=== PATIENT | male | born 1985 | race Two or more races ===

== ENCOUNTER 2024-11-16 02:20 | Inpatient (IN) | payer OTHER, SELFPAY ==
--- NOTE | 2024-11-16 | XR_ITS ---
MRI abdomen, without contrast. MRCP Date and time of exam: November 16, 2024 1014 hours Comparison September 09, 2011 INDICATIONS: Abdominal pain today, enlarged common bile duct and gallbladder sonogram today Technique: Multiple axial and coronal images of the abdomen have been obtained with the Siemens 1.5T MRI scanner. Images obtained included T1 weighted transverse images, T2-weighted transverse images, T2-weighted transverse images fat-suppressed, T2 weighted haste fat suppressed transverse images, T1 weighted images, in and out of phase images, T2-weighted coronal images, breath hold, T2 weighted haze coronal images as well as T2 weighted coronal thick slab images, MRCP. Findings: Intrahepatic biliary tract dilatation Absent gallbladder Common bile duct 12 mm. No common bile duct stones. Abrupt termination of the distal common bile duct, coronal image 14 Pancreatic duct 3 mm No peripancreatic edema Spleen not enlarged No ascites No hydronephrosis IMPRESSION: Enlarged common bile duct 12 mm with fairly abrupt termination, no definite stones Consider ERCP follow-up
[2024-11-16 02:21] VITALS: BMI 26.6
[2024-11-16 02:40] VITALS: BP 129/73; PULSE 93; RESP 19; TEMP 36.6; O2SAT 96
--- NOTE | 2024-11-16 02:56 | XR_ITS ---
Examination: CT abdomen and pelvis without contrast. Coronal 3-D reconstructions. Sagittal 2-D reconstructions. Date and time of exam:[facility] 2024 0429 hours Comparison June 10, 2021 INDICATIONS: Mid quadrant abdominal pain onset today CTDI: vol (mGy): 7.50 DLP: (mGycm): 457 Technique: Axial images of the abdomen have been obtained, 3 mm slice thickness Intravenous contrast material has not been administered. Low dose protocols were performed. One or more of the following dose reduction techniques were used; automated exposure control, adjustment of the mA and/or KV according to patient size, use of iterative reconstruction technique. Findings: Diffuse fatty infiltration throughout the liver Absent gallbladder Common hepatic duct is enlarged, 13 mm as well as common bile duct with fairly abrupt termination of the distal common bile duct, coronal image 64 Splenomegaly AP dimension 13 cm No focal pancreatic mass or dilated pancreatic duct Normal adrenal glands Perinephric stranding Abdominal aorta normal size Normal appendix No bowel obstruction No diverticulitis Urinary bladder intact No prostatomegaly IMPRESSION: Abnormal enlargement, hepatic common bile duct with abrupt termination of the distal common bile duct, coronal image 64, consider MRCP follow-up to exclude common bile duct stones and/or stricture
--- NOTE | 2024-11-16 02:56 | PD.EDRME ---
Rapid Medical Screening Exam RME Arrival date/time: 11/16/24 02:20 This is a case of 39-year-old male who came into the emergency room due to generalized abdominal pain associated with nausea vomiting denies any constipation diarrhea or blood in stool Chief Complaint: Abdominal Pain Time Seen by Provider: 11/16/24 02:49
[2024-11-16 03:23] LABS: Basophils % (Auto) 0 % (0-2.5); Eosinophils # (Auto) 0.9 Thou/mm3 (0.0-0.5); Eosinophils % (Auto) 9 % (0-10); Hematocrit 44.3 % (41.0-53.0); Hemoglobin 15.3 g/dL (13.5-16.0); Immature Granulocytes % (Auto) 0 % (0-0); Immature Granulocytes Auto 0.03 Thou/mm3 (0.00-0.00); Lymphocytes # (Auto) 1.8 Thou/mm3 (1.0-4.8); Lymphocytes % (Auto) 18 % (10-50); Mean Corpuscular HGB Conc 34.5 g/dl (31.0-37.0); Mean Corpuscular Hemoglobin 30.7 pg (25.0-35.0); Mean Corpuscular Volume 89 fL (80-100); Monocytes # (Auto) 0.6 Thou/mm3 (0.0-0.8); Monocytes % (Auto) 7 % (0-12); Neutrophils # (Auto) 6.5 Thou/mm3 (1.8-7.7); Neutrophils % (Auto) 66 % (37-80); Nucleated Red Blood Cell % 0 /100 WBC (0); Platelet Count 168 Thou/mm3 (140-440); RDW Standard Deviation 42.5 fL (35.1-43.9); Red Blood Count 4.98 Miln/mm3 (4.50-5.90); White Blood Count 9.9 Thou/mm3 (3.8-10.6)
[2024-11-16 03:51] LABS: Alanine Aminotransferase 25 U/L (10-49); Albumin, Serum 4.5 gm/dL (3.5-5.0); Albumin/Globulin Ratio 1.8 (1.2-2.2); Alkaline Phosphatase 93 U/L (46-116); Anion Gap 7 (7-16); Aspartate Amino Transferase 58 U/L (0-34); BUN/Creatinine Ratio 21 Ratio (12-20); Bilirubin,Total 0.8 mg/dL (0.3-1.2); Blood Urea Nitrogen 21 mg/dL (9-23); Calcium 8.8 mg/dL (8.3-10.6); Calcium (Corrected) 8.8 mg/dL (8.5-10.1); Carbon Dioxide 23.9 mMol/L (20.0-31.0); Chloride 111 mMol/L (98-107); Estimated Creatinine Clearance 99.2 mL/min (>60); Globulin 2.5 gm/dL (2.3-3.5); Glucose 110 mg/dL (74-106); Lipase 52 U/L (12-53); Osmolality,Calculated 287 (275-295); Sodium 142 mMol/L (136-145); eGFR > 60 See Note
--- NOTE | 2024-11-16 05:07 | PRELIM_ITS ---
CT scan of the abdomen and pelvis without intravenous contrast (axial sections with sagittal and coronal reformats) November 16, 2024 at 0429 hours Clinical History: Abdominal pain. Comparison: No prior study is available for comparison. Findings: Clear lung bases. The liver, spleen, adrenal glands, pancreas unremarkable. Cholecystectomy common bile duct is dilated, 1.4 cm in diameter, likely secondary to cholecystectomy. No urinary tract stone or obstruction is identified. The kidneys are normal. The appendix is normal, best seen on image 145. The urinary bladder is normal. No free intraperitoneal air or fluid. Bowel caliber is normal. The abdominal wall is unremarkable. No acute osseous process. Impression: No acute process of the abdomen or pelvis on this noncontrast exam. No urinary tract stone or obstruction is identified. Report Electronically Signed By: Charlie Ivy 11/16/2024 5:06:58 AM [EST]
[2024-11-16 05:08] LABS: Collection Type, Urine Clean Catch
[2024-11-16 05:13] LABS: Bilirubin,Urine Negative (Negative); Blood,Urine Negative (Negative); Clarity,Urine Clear (Clear/Hazy); Color,Urine Yellow (Lt Yel-Yel); Glucose, Urine Negative (Negative); Ketones,Urine Negative (Negative); Leukocyte Esterase,Urine Negative (Negative); Nitrite,Urine Negative (Negative); Protein,Urine 1+ (Neg - Trace); RBC,Urine 3 /hpf (0-3); Specific Gravity,Urine 1.042 (1.001-1.035); Squamous Epithelial Cell,Urine 1 /hpf (0-5); WBC,Urine 4 /hpf (0-5)
[2024-11-16] MEDS: KETOROLAC INJ 60 MG/2 ML VIAL 30 MG IM (06:12)
--- NOTE | 2024-11-16 06:45 | XR_ITS ---
Examination: Abdomen sonogram, Limited Date and time of exam: November 16, 2024 0734 hours INDICATIONS: Onset abdominal pain today, cholecystectomy 2006, history biliary stent placement Technique: Real-time freedman scale transabdominal sonographic images of the upper abdomen obtained. Findings: Absent gallbladder Enlarged common bile duct 1.1 cm no definite stones Pancreatic head 3.0 cm Liver 12.9 cm no liver lesions, fatty infiltration is present Normal hepatopedal portal venous flow Patent IVC IMPRESSION: Abnormal enlargement common bile duct, consider MRCP follow-up to assess for stones or stricture in the common bile duct
[2024-11-16] MEDS: METOCLOPRAMIDE 5 MG TABLET 10 MG PO (07:02)
[2024-11-16] MEDS: oxyCODONE/APAP 5/325 TABLET 1 TAB PO (07:02)
[2024-11-16 07:18] VITALS: BP 119/80; PULSE 76; RESP 16; TEMP 36.4; O2SAT 98
--- NOTE | 2024-11-16 11:53 | PD.EDABDPN ---
ED Abdominal Pain RME/HPI General Chief Complaint: Abdominal Pain Stated complaint: ABD PAIN Time seen by provider: 11/16/24 02:49 Arrival date/time: 11/16/24 02:20 39-year-old male presents to the emergency department for complaint of abdominal pain nausea vomiting. Patient ports history of cholecystectomy reports complications after cholecystectomy and had CBD stone in the past. Limitations: no limitations RME / HPI RME / HPI narrative: 11/16/24 02:20 This is a case of 39-year-old male who came into the emergency room due to generalized abdominal pain associated with nausea vomiting denies any constipation diarrhea or blood in stool Related Data Allergies Allergy/AdvReac Type Severity Reaction Status Date / Time promethazine HCl Allergy Intermediate SEVERE Verified 12/17/19 19:46 ABDOMINAL PAIN morphine AdvReac Intermediate ABDOMINAL Verified 12/17/19 19:46 PAIN Review of Systems Review of Systems Systems Reviewed: All systems reviewed, normal except as documented Constitutional Constitutional: Reports system reviewed and no additional complaints, except as documented, Denies fever(s) and Denies headache(s) Eyes Eyes: Reports system reviewed and no additional complaints, except as documented and Denies blurry vision ENT Ears, Nose, Mouth, and Throat: Reports system reviewed and no additional complaints, except as documented, Denies headache(s), Denies nasal congestion and Denies nasal discharge Cardiovascular Cardiovascular: Reports system reviewed and no additional complaints, except as documented, Denies chest pain and Denies dyspnea Respiratory Respiratory: Reports system reviewed and no additional complaints, except as documented, Denies chest congestion, Denies cough and Denies dyspnea Gastrointestinal Gastrointestinal: Reports system reviewed and no additional complaints, except as documented, Reports abdominal pain, Reports nausea and Reports vomiting Integumentary/Breasts Skin/Breast: Reports system reviewed and no additional complaints, except as documented and Denies rash Neurologic Neurologic: Reports system reviewed and no additional complaints, except as documented, Reports as per HPI and Denies headache(s) Past Medical History Past Medical History CARDIAC: Negative Congestive Heart Failure RESPIRATORY: Negative Respiratory Disorders or Chronic Obstructive Pulmonary Disease (COPD) GENITOURINARY: Negative Renal Disease ENDOCRINE: Negative Diabetes Mellitus Type 1 or Diabetes Mellitus Type 2 Social History SMOKING STATUS: Never smoker ED Exam General Limitations: Present no limitations General appearance: Present alert and in no apparent distress Head Head exam: Present atraumatic, normocephalic and normal inspection Eye Eye exam: Present normal appearance, PERRL and EOMI; Absent conjunctival injection ENT ENT exam: Present normal exam, normal oropharynx and mucous membranes moist Neck Neck exam: Present normal inspection, full ROM and trachea midline Chest Chest inspection: Present normal inspection and symmetric chest wall rise Respiratory Respiratory exam: Present normal lung sounds bilaterally; Absent respiratory distress or wheezes Cardiovascular Cardiovascular exam: Present regular rate, normal rhythm and normal heart sounds Abdominal Exam Abdominal exam: Present soft, tenderness and normal bowel sounds; Absent distention, guarding, rebound or rigidity Extremities Exam Extremities exam: Present normal inspection and full ROM Back Exam Back exam: Present normal inspection and full ROM Neurological Exam Neurological exam: Present alert, oriented X3 and CN II-XII intact Psychiatric Psychiatric exam: Present normal affect and normal mood Skin Skin exam: Present warm, dry, intact and normal color Course Quality Measures none Orders Category Date Time Status Admit to Inpatient Status Routine Admission 11/16/24 12:21 Active Patient Condition Routine Admission 11/16/24 12:21 Ordered COVID-19 Screening Questionnaire NOW Care 11/16/24 11:54 Active Decision to Admit X1 Care 11/16/24 11:54 Active MRI Screening NOW Care 11/16/24 08:07 Active Notify provider NEEDED Care 11/16/24 12:21 Active Sequential Compression Device QSHIFT Care 11/16/24 12:20 Active Consult to Gastroenterology Stat Cons 11/16/24 11:[address] abdomen pelvis wo con Stat Exams 11/16/24 02:56 Completed MR MRCP Stat Exams 11/16/24 Completed US gall bladder Stat Exams 11/16/24 06:45 Completed CBC AM DRAW Lab 11/17/24 05:00 Ordered CBC AM DRAW Lab 11/18/24 05:00 Ordered CBC AM DRAW Lab 11/19/24 05:00 Ordered CBC Stat Lab 11/16/24 03:16 Completed Comprehensive Metabolic Panel AM DRAW Lab 11/17/24 05:00 Ordered Comprehensive Metabolic Panel AM DRAW Lab 11/18/24 05:00 Ordered Comprehensive Metabolic Panel AM DRAW Lab 11/19/24 05:00 Ordered Comprehensive Metabolic Panel Stat Lab 11/16/24 03:16 Completed Lipase Stat Lab 11/16/24 03:16 Completed Lipid Panel Routine Lab 11/16/24 12:24 Ordered Magnesium AM DRAW Lab 11/17/24 05:00 Ordered Magnesium AM DRAW Lab 11/18/24 05:00 Ordered Magnesium AM DRAW Lab 11/19/24 05:00 Ordered Partial Thromboplastin Time AM DRAW Lab 11/17/24 05:00 Ordered Phosphorous AM DRAW Lab 11/17/24 05:00 Ordered Phosphorous AM DRAW Lab 11/18/24 05:00 Ordered Phosphorous AM DRAW Lab 11/19/24 05:00 Ordered Prothrombin Time with INR AM DRAW Lab 11/17/24 05:00 Ordered Prothrombin Time with INR AM DRAW Lab 11/18/24 05:00 Ordered Prothrombin Time with INR AM DRAW Lab 11/19/24 05:00 Ordered Urinalysis Stat Lab 11/16/24 04:50 Completed Acetaminophen Tab [Tylenol Tab] Med 11/16/24 12:20 Active 650 mg PO Q6H PRN HYDROcodone*/APAP 5/325 [[place] 5/325] Med 11/16/24 12:20 Active 1 tab PO Q6HR PRN Ketorolac Inj [Toradol Inj] Med 11/16/24 05:52 Discontinued 30 mg IM X1 ONE Metoclopramide [Reglan] Med 11/16/24 06:45 Discontinued 10 mg PO X1 ONE Morphine Inj Med 11/16/24 12:20 Active 1 mg IVP Q4H PRN Ondansetron Inj [Zofran Inj] Med 11/16/24 12:20 Active 4 mg IV Q6H PRN Pantoprazole [Protonix] Med 11/17/24 09:00 Active 40 mg PO QDAY oxyCODONE/APAP 5/325 [Percocet 5/325] Med 11/16/24 06:45 Discontinued 1 tab PO X1 ONE Code Status Routine Oth 11/16/24 12:20 Ordered Vital Signs Vital signs: Vital Signs Temperature 97.9 F 11/16/24 02:40 Pulse Rate 93 11/16/24 02:40 Respiratory Rate 19 11/16/24 02:40 Blood Pressure 129/73 11/16/24 02:40 Pulse Oximetry (%) 96 11/16/24 02:40 Oxygen Delivery Method Room Air 11/16/24 02:40 O2 saturation 96% on room air within normal limits Abdominal Pain MDM MDM Narrative MDM Narrative:: 39-year-old male presents to the emergency department for complaint of abdominal pain nausea vomiting. Patient ports history of cholecystectomy reports complications after cholecystectomy and had CBD stone in the past. On exam patient has tenderness to the abdomen pain out of proportion Lab work and imaging reviewed lab work unremarkable Initially CT scan obtained followed by ultrasound. MRCP obtained MRCP shows abrupt termination and dilation Consultation: I spoke with Dr. Bedolla states he will do ERCP on Monday I spoke with hospitalist for admission patient admitted in no distress I do believe patient requires admission for IV fluids, pain medication, GI consultation and ERCP Patient data External records reviewed:: [facility] previous records Clinical information provided by:: patient Social determinants that could affect healthcare access:: none Patient has the following chronic illnesses:: See history How is presenting disease/condition affected by chronic disease/condition?: caused by Evaluation data The following diagnostics were reviewed and interpreted by me:: lab results and radiology exam(s) Lab and/or radiology exams considered but not ordered:: Labs radiology obtained Interpretation Summary: Reviewed by me Medications / Prescriptions Medications or Prescriptions considered but not ordered:: Given Medication administrations:: Medication Administration History Acetaminophen (Acetaminophen 325 Mg Tablet) 650 mg PO Q6H PRN; Protocol PRN Reason: PAIN OR FEVER > 100.4 Stop: 12/16/24 12:19 Hydrocodone Bitart/Acetaminophen (Hydrocodone/Apap 5/325 Tablet) 1 tab PO Q6HR PRN PRN Reason: PAIN SCALE 4-6 (Moderate Stop: 11/21/24 12:19 Morphine Sulfate (Morphine Sulf Inj 10 Mg/Ml Vial) 1 mg IVP Q4H PRN PRN Reason: PAIN SCALE 7-10 (Severe Stop: 11/21/24 12:19 Ondansetron HCl (Ondansetron Inj 2 Mg/Ml Inj 2 Ml) 4 mg IV Q6H PRN; Protocol PRN Reason: NAUSEA OR VOMITING Stop: 12/16/24 12:19 Pantoprazole Sodium (Pantoprazole 40 Mg Tablet) 40 mg PO QDAY CHARLES Stop: 12/17/24 08:59 Discontinued Medications Ketorolac Tromethamine (Ketorolac Inj 60 Mg/2 Ml Vial) 30 mg IM X1 ONE Stop: 11/16/24 05:53 Last Admin: 11/16/24 06:12 Dose: 30 mg Documented By: KLAUDIA Metoclopramide HCl (Metoclopramide 5 Mg Tablet) 10 mg PO X1 ONE Stop: 11/16/24 06:46 Last Admin: 11/16/24 07:02 Dose: 10 mg Documented By: TASHA Oxycodone/Acetaminophen (Oxycodone/Apap 5/325 Tablet) 1 tab PO X1 ONE Stop: 11/16/24 06:46 Last Admin: 11/16/24 07:02 Dose: 1 tab Documented By: TASHA Given Consultations Consultation(s) initiated? (list below): Yes Consultation #1 (Physician, Specialty, Details): Dr. Bedolla Diagnosis Differential diagnosis abdominal pain: abdominal pain, acute appendicitis, gastroenteritis and pancreatitis Most likely diagnosis given after review of the tests above:: Possible CBD stone, intractable abdominal pain Admission Indicated Admission indicated?: indicated Admission Request Was there a request for admission?: Yes Admission Attestation Admission request attestation: Discussed case with [] from Hospitalist service regarding admission. Discussed patients ED course, exam findings, labs, and radiology results. The Hospitalist [agrees,declines] to accept the patient for admission. Disposition Plan Disposition Plan: Admit Discharge Plan Plan Patient Disposition: Admit Acute Care w/in Hospital Discharge Disposition comment: Stable Prescriptions/Referrals Referrals: No Primary/Family,Physician [Primary Care Provider] - In 1 week Problem List Clinical Impression: Intractable abdominal pain, Common bile duct dilatation Patient/Caregiver Discharge Instructions Education Materials: [facility] Print Language: Azeri Stand Alone Forms: Barbie Award Info., Patient Portal Info Letter PA/DEVONTE Supervising Physician NATALYA/DEVONTE Supervising Physician: Dr schneider
[2024-11-16 12:52] LABS: Cardiac Risk Estimate 4.8 RATIO (4.0-6.7); Cholesterol 201 mg/dL (132-200); HDL Cholesterol 42 mg/dL (40-60); LDL Cholesterol,Calculated 134 mg/dL (0-130); Triglycerides 124 mg/dL (30-150)
--- NOTE | 2024-11-16 13:15 | ESHP_ITS ---
Documentation for date of: 11/16/24 HPI History of Present Illness History of present illness: Bridgett Viera is a 39-year-old male with no significant past medical history who presented to the ED on 11/16 for acute onset abdominal pain. He states that at around midnight he started to experience intense epigastric abdominal pain that radiated to his right upper quadrant and back with associated nausea and one episode of nonbloody emesis. Otherwise, he denies fever, chills, diarrhea, constipation, hematuria, or dysuria. Has a history of cholecystectomy in 2006 in [facility] complicated by choledocholithiasis in the same month as his cholecystectomy and had stents placed but have since been removed and no other complications since. In the ED, vital signs stable - no fever, blood pressure and heart rate within normal limits, and patient is on room air. No leukocytosis, total bilirubin withi normal limits, ALP within normal limits, and LFTs within normal limits. UA negative for signs of UTI. CT A/P showed absent gallbladder, CBD enlarged at 13 mm but with abrupt termination in distal CBD, splenomegaly, perinephric stranding. Gallbladder ultrasound showed absent gallbladder, CBD 1.1 cm without stones. MRCP showed enlarged CBD at 12 mm with abrupt termination, no definite stone seen. GI, Dr. Bedolla, consulted in ED and ERCP planned for Monday. 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 PSHx: work accident leading to 2 left shoulder surgeries, 3 right knee surgeries and 1 right ankle surgery Allergies: morphine (rash) Review of Systems Review of Systems Systems Reviewed: All systems reviewed, normal except as documented Exam Vital Signs Temp Pulse Resp BP Pulse Ox O2 Del Method 97.5 F 76 16 119/80 98 Room Air 11/16/24 07:18 11/16/24 07:18 11/16/24 07:18 11/16/24 07:18 11/16/24 07:18 11/16/24 07:18 Narrative Exam General: AOx3, moderate distress, able to speak full sentences HEENT: NC/AT, mucous membranes moist, bilateral sclera anicteric Cardiovascular: regular rate and rhythm, S1/S2 present, no murmurs appreciated Pulmonary: clear to auscultation bilaterally, no rales/rhonchi/wheezes Abdominal: epigastric and RUQ tenderness, soft, non-distended, no rebound/guarding Musculoskeletal: bilateral CVA tenderness, normal ROM, no peripheral edema Skin: warm and dry, intact, no rashes Neuro: CN II-XII intact, no focal deficits Results: Labs 11/16/24 03:16 11/16/24 03:16 Labs: Short CBC 11/16/24 Range/Units 03:16 WBC 9.9 (3.8-10.6) Thou/mm3 Hgb 15.3 (13.5-16.0) g/dL Hct 44.3 (41.0-53.0) % Plt Count 168 (140-440) Thou/mm3 BMP 11/16/24 03:16 Sodium 142 Potassium 4.0 Chloride 111 H Carbon Dioxide 23.9 BUN 21 Creatinine 1.0 Glucose 110 H Calcium 8.8 Liver Function 11/16/24 Range/Units 03:16 Total Bilirubin 0.8 (0.3-1.2) mg/dL AST 58 H (0-34) U/L ALT 25 (10-49) U/L Alkaline Phosphatase 93 (46-116) U/L Albumin 4.5 (3.5-5.0) gm/dL Urine 11/16/24 Range/Units 04:50 Urine Color Yellow (Lt Yel-Yel) Urine Clarity Clear (Clear/Hazy) Urine pH 6.0 (5.0-7.0) Ur Specific [place] 1.042 H (1.001-1.035) Urine Protein 1+ A (Neg - Trace) Urine Glucose (UA) Negative (Negative) Quality Measures Quality Measures none Medications Home Medications and Allergies Allergies Allergy/AdvReac Type Severity Reaction Status Date / Time promethazine HCl Allergy Intermediate SEVERE Verified 12/17/19 19:46 ABDOMINAL PAIN morphine AdvReac Intermediate ABDOMINAL Verified 12/17/19 19:46 PAIN Visit Medications Acetaminophen (Acetaminophen 325 Mg Tablet) 650 mg PO Q6H PRN; Protocol PRN Reason: PAIN OR FEVER > 100.4 Stop: 12/16/24 12:19 Hydrocodone Bitart/Acetaminophen (Hydrocodone/Apap 5/325 Tablet) 1 tab PO Q6HR PRN PRN Reason: PAIN SCALE 4-6 (Moderate Stop: 11/21/24 12:19 Diphenhydramine HCl (Diphenhydramine Elix 25 Mg/10 Ml Udc) 25 mg PO X1 PRN PRN Reason: rash, itching Stop: 12/16/24 12:41 Hydromorphone HCl (Hydromorphone Inj 2 Mg/Ml Vial) 0.5 mg IVP Q4HR PRN PRN Reason: PAIN SCALE 7-10 (Severe Stop: 11/21/24 12:59 Ondansetron HCl (Ondansetron Inj 2 Mg/Ml Inj 2 Ml) 4 mg IV Q6H PRN; Protocol PRN Reason: NAUSEA OR VOMITING Stop: 12/16/24 12:19 Pantoprazole Sodium (Pantoprazole 40 Mg Tablet) 40 mg PO QDAY CHARLES Stop: 12/17/24 08:59 Discontinued Medications Ketorolac Tromethamine (Ketorolac Inj 60 Mg/2 Ml Vial) 30 mg IM X1 ONE Stop: 11/16/24 05:53 Last Admin: 11/16/24 06:12 Dose: 30 mg Metoclopramide HCl (Metoclopramide 5 Mg Tablet) 10 mg PO X1 ONE Stop: 11/16/24 06:46 Last Admin: 11/16/24 07:02 Dose: 10 mg Morphine Sulfate (Morphine Sulf Inj 10 Mg/Ml Vial) 1 mg IVP Q4H PRN PRN Reason: PAIN SCALE 7-10 (Severe Stop: 11/21/24 12:19 Oxycodone/Acetaminophen (Oxycodone/Apap 5/325 Tablet) 1 tab PO X1 ONE Stop: 11/16/24 06:46 Last Admin: 11/16/24 07:02 Dose: 1 tab Assessment & Plan Plan Bridgett Viera is a 39-year-old male with no significant past medical history who presented to the ED on 11/16 for acute onset abdominal pain. He states that at around midnight he started to experience intense epigastric abdominal pain that radiated to his right upper quadrant and back with associated nausea and one episode of nonbloody emesis. Admitted for management of enlarged CBD as seen on MRCP and planned for ERCP. #Enlarged common bile duct #? Choledocolithiasis #Status-post cholecystectomy 2006 Around midnight, experienced intense epigastric abdominal pain that radiated to his right upper quadrant and back with associated nausea and one episode of nonbloody emesis. Denies fever, chills, diarrhea, constipation, hematuria, or dysuria. Cholecystectomy in 2006 in [facility] complicated by choledocholithiasis in the same month as his cholecystectomy and had stents placed but have since been removed and no other complications since. Imaging showed CBD dilatation (1.1-1.3 cm) with abrupt termination. Vitals stable without fevers, no leukocytosis, t bili and ALP wnl. ? GI consulted, appreciate recommendations ? ERCP planned for Monday, 11/18 ? Pain management: [facility] frazieraudid (allergy to morphine) ? Will continue to monitor labs and vitals for signs of deterioration Hospital management: Disposition: pending ERCP on 11/18 Fluids: not indicated Diet: regular Lines: PIV DVT prophylaxis: SCDs GI prophylaxis: pantoprazole 40 mg daily CODE STATUS: full code ----- Plan discussed with attending physician Dr. Alyson Leary MD PGY-1 Internal Medicine Attending Provider Attestation/Addendum I have discussed and was present for the essential components of the history, physical examination, diagnosis, and treatment plan with the resident. I agree with the patient's care as documented by the resident and amended herein by me. Abdi Shields DO. Although this document has been carefully reviewed, there may still be some phonetic and other typographical errors. These errors are purely grammatical due to imperfections in the software program and should not be construed in any way to compromise the substance of the patient's medical care during this visit.
[2024-11-16 14:02] VITALS: BP 110/71; PULSE 73; RESP 20; TEMP 36.7; O2SAT 95
[2024-11-16 15:10] VITALS: BP 121/77; PULSE 65; RESP 18; TEMP 37.2; O2SAT 99
[2024-11-16] MEDS: HYDROmorphone INJ 2 MG/ML VIAL 0.5 MG IVP ×2 (15:12→20:59)
--- NOTE | 2024-11-16 16:46 | PC.NURSE ---
report called to [facility] on med/surg floor. pt to go to room 368
[2024-11-16 17:37] VITALS: BP 119/77; PULSE 76; RESP 18; TEMP 36.6; O2SAT 98
[2024-11-16] MEDS: ONDANSETRON INJ 2 MG/ML INJ 2 ML 4 MG IV (18:33)
[2024-11-16] MEDS: KETOROLAC INJ 30 MG/ML VIAL IVP (18:33)
[2024-11-16 20:00] VITALS: BP 121/66; PULSE 74; RESP 18; TEMP 36.3; O2SAT 96
[2024-11-16] MEDS: RINGERS LACTATED 500 ML 500 ML 125 ML IV (23:47)
[2024-11-17] VITALS: BP 115/74; PULSE 74; RESP 18; TEMP 36.4; O2SAT 96
[2024-11-17] MEDS: HYDROmorphone INJ 2 MG/ML VIAL 0.5 MG IVP ×2 (02:22→07:57)
[2024-11-17 04:00] VITALS: BP 112/62; PULSE 85; RESP 18; TEMP 36; O2SAT 95
[2024-11-17] MEDS: ACETAMINOPHEN 325 MG TABLET 650 MG PO ×2 (04:14→12:10)
[2024-11-17] MEDS: ONDANSETRON INJ 2 MG/ML INJ 2 ML 4 MG IV ×2 (04:52→13:05)
[2024-11-17 06:19] LABS: Prothrombin Time 11.1 Seconds (9.0-12.2)
[2024-11-17] MEDS: KETOROLAC INJ 30 MG/ML VIAL IVP ×2 (06:26→18:06)
[2024-11-17 06:33] LABS: Alanine Aminotransferase 391 U/L (10-49); Albumin, Serum 3.8 gm/dL (3.5-5.0); Albumin/Globulin Ratio 1.7 (1.2-2.2); Alkaline Phosphatase 137 U/L (46-116); Anion Gap 9 (7-16); Aspartate Amino Transferase 354 U/L (0-34); BUN/Creatinine Ratio 15 Ratio (12-20); Bilirubin,Total 1.2 mg/dL (0.3-1.2); Blood Urea Nitrogen 15 mg/dL (9-23); Calcium 8.4 mg/dL (8.3-10.6); Calcium (Corrected) 8.6 mg/dL (8.5-10.1); Carbon Dioxide 21.3 mMol/L (20.0-31.0); Chloride 109 mMol/L (98-107); Estimated Creatinine Clearance 99.2 mL/min (>60); Globulin 2.3 gm/dL (2.3-3.5); Glucose 95 mg/dL (74-106); Osmolality,Calculated 278 (275-295); Phosphorous 3.4 mg/dL (2.4-5.1); Potassium 4.1 mMol/L (3.4-5.1); Sodium 139 mMol/L (136-145); Total Protein 6.1 gm/dL (5.7-8.2); eGFR > 60 See Note
[2024-11-17 07:47] LABS: Basophils % (Auto) 0 % (0-2.5); Eosinophils # (Auto) 0.5 Thou/mm3 (0.0-0.5); Eosinophils % (Auto) 8 % (0-10); Hematocrit 41.2 % (41.0-53.0); Hemoglobin 14.7 g/dL (13.5-16.0); Immature Granulocytes % (Auto) 0 % (0-0); Immature Granulocytes Auto 0.02 Thou/mm3 (0.00-0.00); Lymphocytes # (Auto) 0.8 Thou/mm3 (1.0-4.8); Lymphocytes % (Auto) 14 % (10-50); Mean Corpuscular HGB Conc 35.7 g/dl (31.0-37.0); Mean Corpuscular Hemoglobin 30.7 pg (25.0-35.0); Mean Corpuscular Volume 86 fL (80-100); Monocytes # (Auto) 0.4 Thou/mm3 (0.0-0.8); Monocytes % (Auto) 7 % (0-12); Neutrophils % (Auto) 70 % (37-80); Nucleated Red Blood Cell % 0 /100 WBC (0); Platelet Count 169 Thou/mm3 (140-440); RDW Standard Deviation 40.5 fL (35.1-43.9); Red Blood Count 4.79 Miln/mm3 (4.50-5.90); White Blood Count 5.8 Thou/mm3 (3.8-10.6)
[2024-11-17] MEDS: METOCLOPRAMIDE INJ 5 MG/ML VIAL 2 ML 10 MG IVP ×2 (07:57→18:07)
[2024-11-17] MEDS: RINGERS LACTATED 1000 ML 1,000 ML 100 ML IV ×2 (07:58→18:06)
[2024-11-17 08:00] VITALS: BP 108/65; PULSE 83; RESP 16; TEMP 36.2; O2SAT 97
[2024-11-17] MEDS: PANTOPRAZOLE 40 MG TABLET PO (08:07)
[2024-11-17 08:35] VITALS: BMI 27.0
--- NOTE | 2024-11-17 11:11 | PC.SS ---
Bridgett Viera is a 39-year-old male admitted to [facility] for ABD Pain. SS conducted bedside contact with the patient to complete initial assessment and to discuss discharge planning.? Patient confirmed demographic information. Patient identifies his life partner as his surrogate decision maker Padmini Zafar [phone]. Pt resides at home with family. Pt is independent with all ADLs, no need for any source for DME. Pt pharmacy of choice is [facility]. Pt will return home upon DC no further needs identified. SS will remain available for any additional needs. DM: Padmini Zafar [phone] DC plan: Home PCP: LILIYA Sotelo
--- NOTE | 2024-11-17 11:53 | ESPR_ITS ---
Documentation for date of: 11/17/24 Subjective Subjective Interval history: No acute overnight events. Seen and examined at bedside and continues to endorse abdominal pain and nausea that worsens when he attempts to eat. He did have one episode of nonbloody emesis and zofran was switched to reglan. Dilaudid was increased to 0.5 to 1 mg IV q4h. Vital signs stable, no fevers overnight, no leukocytosis, but AST increased from 58 to 354, ALT increased from 25 to 391, ALP increased from 93 to 137, and total bilirubin increased from 0.8 to 1.2. Pending ERCP tomorrow and NPO after midnight. Exam Vital Signs Temp Pulse Resp BP Pulse Ox O2 Del Method 97.1 F 83 16 108/65 97 Room Air 11/17/24 08:00 11/17/24 08:00 11/17/24 08:00 11/17/24 08:00 11/17/24 08:00 11/17/24 08:00 Narrative Exam General: AOx3, moderate distress, able to speak full sentences HEENT: NC/AT, mucous membranes moist, bilateral sclera anicteric Cardiovascular: regular rate and rhythm, S1/S2 present, no murmurs appreciated Pulmonary: clear to auscultation bilaterally, no rales/rhonchi/wheezes Abdominal: epigastric and RUQ tenderness that radiates to back, soft, non- distended, no rebound/guarding Musculoskeletal: normal ROM, no peripheral edema Skin: warm and dry, intact, no rashes Neuro: CN II-XII intact, no focal deficits Objective Labs 11/17/24 06:40 11/17/24 04:41 Labs: Laboratory Results - last 24 hr 11/16/24 11/17/24 11/17/24 03:16 04:41 06:40 WBC 5.8 D RBC 4.79 Hgb 14.7 Hct 41.2 MCV 86 MCH 30.7 MCHC 35.7 RDW Std Deviation 40.5 Plt Count 169 Neut % (Auto) 70 Lymph % (Auto) 14 [place] % (Auto) 7 Eos % (Auto) 8 Baso % (Auto) 0 Neut # (Auto) 4.0 Lymph # (Auto) 0.8 L [place] # (Auto) 0.4 Eos # (Auto) 0.5 Baso # (Auto) 0.0 Immature Gran # (Auto) 0.02 H Absolute Nucleated RBC 0.00 Immature Gran % 0 Nucleated RBC % 0 PT 11.1 INR 1.0 APTT 28.0 Sodium 139 Potassium 4.1 Chloride 109 H Carbon Dioxide 21.3 Anion Gap 9 BUN 15 Creatinine 1.0 Estim Creat Clear Calc 99.2 eGFR > 60 BUN/Creatinine Ratio 15 Glucose 95 Calculated Osmolality 278 Calcium 8.4 Corrected Calcium 8.6 Phosphorus 3.4 Magnesium 2.0 Total Bilirubin 1.2 AST 354 H ALT 391 H Alkaline Phosphatase 137 H D Total Protein 6.1 Albumin 3.8 D Globulin 2.3 Albumin/Globulin Ratio 1.7 Triglycerides 124 Cholesterol 201 H LDL Cholesterol, Calc 134 H HDL Cholesterol 42 Cholesterol/HDL Ratio 4.8 Quality Measures Quality Measures none Assessment & Plan Assessment Current Active Medications: Generic Name Dose Route Start Last Admin Trade Name Freq PRN Reason Stop Dose Admin Acetaminophen 650 mg 11/16/24 12:20 11/17/24 04:14 Acetaminophen 325 Mg Tablet PO 12/16/24 12:19 650 mg Q6H PRN Administration PAIN OR FEVER > 100.4 Protocol Diphenhydramine HCl 25 mg 11/16/24 12:42 Diphenhydramine Elix 25 Mg/10 Ml Udc PO 12/16/24 12:41 X1 PRN rash, itching Hydromorphone HCl 1 mg 11/17/24 11:33 Hydromorphone Inj 2 Mg/Ml Vial IVP 11/21/24 12:59 Q4HR PRN PAIN SCALE 7-10 (Severe Lactated Ringer's 1,000 mls @ 100 mls/hr 11/17/24 07:52 11/17/24 07:58 Lactated Ringers IV 12/17/24 07:51 100 mls/hr .Q10H CHARLES Administration Ketorolac Tromethamine 30 mg 11/16/24 16:24 11/17/24 06:26 Ketorolac Inj 30 Mg/Ml Vial IVP 11/21/24 16:23 30 mg Q6HR PRN Administration PAIN SCALE 4-6 (Moderate Ondansetron HCl 4 mg 11/16/24 12:20 11/17/24 04:52 Ondansetron Inj 2 Mg/Ml Inj 2 Ml IV 12/16/24 12:19 4 mg Q6H PRN Administration NAUSEA OR VOMITING Protocol Pantoprazole Sodium 40 mg 05/11/25 09:00 11/17/24 08:07 Pantoprazole 40 Mg Tablet PO 12/17/24 08:59 40 mg QDAY CHARLES Administration Plan Bridgett Viera is a 39-year-old male with no significant past medical history who presented to the ED on 11/16 for acute onset abdominal pain. He states that at around midnight he started to experience intense epigastric abdominal pain that radiated to his right upper quadrant and back with associated nausea and one episode of nonbloody emesis. Admitted for management of enlarged CBD as seen on MRCP and planned for ERCP. #Enlarged common bile duct #? Choledocolithiasis #Status-post cholecystectomy 2006 Around midnight, experienced intense epigastric abdominal pain that radiated to his right upper quadrant and back with associated nausea and one episode of nonbloody emesis. Denies fever, chills, diarrhea, constipation, hematuria, or dysuria. Cholecystectomy in 2006 in [facility] complicated by choledocholithiasis in the same month as his cholecystectomy and had stents placed but have since been removed and no other complications since. Imaging showed CBD dilatation (1.1-1.3 cm) with abrupt termination. Vitals stable without fevers, no leukocytosis, t bili and ALP wnl on admission but LFTs, ALP, and t bili all noted to increase overnight. ? GI consulted, appreciate recommendations ? ERCP planned for Monday, 11/18 ? Pain management: Ketorolac, Dilaudid (allergy to morphine) ? Zofran switched to reglan ? Will continue to monitor labs and vitals for signs of deterioration Hospital management: Disposition: pending ERCP on 11/18 Fluids: not indicated Diet: regular and low fat diet with small meal modification, NPO after midnight Lines: PIV DVT prophylaxis: SCDs GI prophylaxis: pantoprazole 40 mg daily CODE STATUS: full code ----- Plan discussed with attending physician Dr. Alyson Leary MD PGY-1 Internal Medicine Attending Provider Attestation/Addendum I have discussed and was present for the essential components of the history, physical examination, diagnosis, and treatment plan with the resident. I agree with the patient's care as documented by the resident and amended herein by me. Abdi Shields DO. Patient seen and evaluated this AM. Pain is not very controlled, patient can really not tolerate food at this time. Liver enzymes continue to elevate, ERCP scheduled for tomorrow hopefully this resolves his issue. Although this document has been carefully reviewed, there may still be some phonetic and other typographical errors. These errors are purely grammatical due to imperfections in the software program and should not be construed in any way to compromise the substance of the patient's medical care during this visit.
[2024-11-17 12:00] VITALS: BP 117/67; PULSE 70; RESP 18; TEMP 36.2; O2SAT 96
[2024-11-17] MEDS: HYDROmorphone INJ 2 MG/ML VIAL 1 MG IVP ×2 (13:06→20:24)
--- NOTE | 2024-11-17 15:16 | EKG_ITS ---
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
--- NOTE | 2024-11-17 15:46 | PC.SS ---
Rounding: Pending ERCP
[2024-11-17 16:00] VITALS: BP 114/73; PULSE 68; RESP 19; TEMP 36.6; O2SAT 97
[2024-11-17 20:00] VITALS: BP 105/75; PULSE 8; RESP 18; TEMP 36.3; O2SAT 97
[2024-11-18] VITALS: BP 116/73; PULSE 74; RESP 18; TEMP 36.3; O2SAT 98
[2024-11-18] MEDS: KETOROLAC INJ 30 MG/ML VIAL IVP ×4 (00:07→22:00)
[2024-11-18 04:00] VITALS: BP 115/98; PULSE 82; RESP 18; TEMP 36.7; O2SAT 99
[2024-11-18] MEDS: HYDROmorphone INJ 2 MG/ML VIAL 1 MG IVP ×3 (04:21→18:07)
[2024-11-18] MEDS: RINGERS LACTATED 1000 ML 1,000 ML 100 ML IV ×2 (04:23→14:58)
[2024-11-18 06:00] VITALS: BMI 27.0
[2024-11-18] MEDS: METOCLOPRAMIDE INJ 5 MG/ML VIAL 2 ML 10 MG IVP ×3 (06:34→18:28)
[2024-11-18 06:46] LABS: Basophils % (Auto) 0 % (0-2.5); Eosinophils # (Auto) 0.6 Thou/mm3 (0.0-0.5); Eosinophils % (Auto) 9 % (0-10); Hematocrit 41.2 % (41.0-53.0); Hemoglobin 14.1 g/dL (13.5-16.0); Immature Granulocytes % (Auto) 0 % (0-0); Immature Granulocytes Auto 0.01 Thou/mm3 (0.00-0.00); Lymphocytes # (Auto) 1.4 Thou/mm3 (1.0-4.8); Lymphocytes % (Auto) 22 % (10-50); Mean Corpuscular HGB Conc 34.2 g/dl (31.0-37.0); Mean Corpuscular Hemoglobin 30.5 pg (25.0-35.0); Mean Corpuscular Volume 89 fL (80-100); Monocytes # (Auto) 0.4 Thou/mm3 (0.0-0.8); Monocytes % (Auto) 7 % (0-12); Neutrophils # (Auto) 3.9 Thou/mm3 (1.8-7.7); Neutrophils % (Auto) 62 % (37-80); Nucleated Red Blood Cell % 0 /100 WBC (0); Platelet Count 162 Thou/mm3 (140-440); Prothrombin Time 11.3 Seconds (9.0-12.2); RDW Standard Deviation 41.3 fL (35.1-43.9); Red Blood Count 4.62 Miln/mm3 (4.50-5.90); White Blood Count 6.4 Thou/mm3 (3.8-10.6)
[2024-11-18 07:01] LABS: Alanine Aminotransferase 263 U/L (10-49); Albumin, Serum 3.6 gm/dL (3.5-5.0); Albumin/Globulin Ratio 1.7 (1.2-2.2); Alkaline Phosphatase 129 U/L (46-116); Anion Gap 7 (7-16); Aspartate Amino Transferase 96 U/L (0-34); BUN/Creatinine Ratio 17 Ratio (12-20); Bilirubin,Total 0.6 mg/dL (0.3-1.2); Blood Urea Nitrogen 15 mg/dL (9-23); Calcium 8.1 mg/dL (8.3-10.6); Calcium (Corrected) 8.4 mg/dL (8.5-10.1); Carbon Dioxide 26.7 mMol/L (20.0-31.0); Chloride 108 mMol/L (98-107); Creatinine (Component) 0.9 mg/dL (0.6-1.3); Estimated Creatinine Clearance 110.2 mL/min (>60); Globulin 2.1 gm/dL (2.3-3.5); Glucose 99 mg/dL (74-106); Magnesium 1.9 mg/dL (1.6-2.6); Osmolality,Calculated 283 (275-295); Phosphorous 2.6 mg/dL (2.4-5.1); Potassium 3.7 mMol/L (3.4-5.1); Sodium 142 mMol/L (136-145); Total Protein 5.7 gm/dL (5.7-8.2); eGFR > 60 See Note
[2024-11-18 07:44] VITALS: BP 107/68; PULSE 82; RESP 20; TEMP 36.4; O2SAT 98
--- NOTE | 2024-11-18 10:46 | PC.SS ---
SS follow up note; pending ERCP today, Possible discharge today.
[2024-11-18 12:00] VITALS: BP 122/76; PULSE 71; RESP 18; TEMP 36.2; O2SAT 96
[2024-11-18] MEDS: ACETAMINOPHEN 325 MG TABLET 650 MG PO (12:43)
[2024-11-18 16:00] VITALS: BP 113/72; PULSE 83; RESP 16; TEMP 36.8; O2SAT 95
[2024-11-18 20:00] VITALS: BP 125/77; PULSE 97; RESP 19; TEMP 36.7; O2SAT 97
--- NOTE | 2024-11-18 23:20 | PD.HHPROG ---
Documentation for date of: 11/18/24 Subjective - Hospitalist Subjective Interval history: No acute events overnight, patient still has abdominal pain, more in the right upper quadrant and epigastric region, patient also very nauseous and was experiencing vomiting this morning. Labs largely unremarkable, liver enzymes remain elevated, T. bili 0.6, AST 96, ALT 263 and alk phos 129. Exam Vital Signs Temp Pulse Resp BP Pulse Ox O2 Del Method 98.0 F 97 19 125/77 97 Room Air 11/18/24 20:00 11/18/24 20:00 11/18/24 20:00 11/18/24 20:00 11/18/24 20:00 11/18/24 20:00 Narrative GENERAL APPEARANCE: NAD, mild distress HEENT: Normocephalic, atraumatic, NECK: Supple CARDIOVASULAR: NSR, S1, S2 heard without S3-S4 or murmur no rubs or gallops. LUNGS/CHEST: CTA bilaterally ABDOMEN: Tender to the right upper quadrant and epigastric region, NABS x 4 quadrants. EXTREMITIES: Normal inspection and palpation. No edema, clubbing or cyanosis. NEURO: Alert, awake and oriented x3. Objective - Hospitalist Labs Diagram: 11/18/24 05:11/18/24 05:00 Labs: Laboratory Results - last 24 hr 11/18/24 05:00 WBC 6.4 RBC 4.62 Hgb 14.1 Hct 41.2 MCV 89 MCH 30.5 MCHC 34.2 RDW Std Deviation 41.3 Plt Count 162 Neut % (Auto) 62 Lymph % (Auto) 22 [place] % (Auto) 7 Eos % (Auto) 9 Baso % (Auto) 0 Neut # (Auto) 3.9 Lymph # (Auto) 1.4 [place] # (Auto) 0.4 Eos # (Auto) 0.6 H Baso # (Auto) 0.0 Immature Gran # (Auto) 0.01 H Absolute Nucleated RBC 0.00 Immature Gran % 0 Nucleated RBC % 0 PT 11.3 INR 1.0 Sodium 142 Potassium 3.7 Chloride 108 H Carbon Dioxide 26.7 Anion Gap 7 BUN 15 Creatinine 0.9 Estim Creat Clear Calc 110.2 eGFR > 60 BUN/Creatinine Ratio 17 Glucose 99 Calculated Osmolality 283 Calcium 8.1 L Corrected Calcium 8.4 L Phosphorus 2.6 Magnesium 1.9 Total Bilirubin 0.6 D AST 96 H ALT 263 H Alkaline Phosphatase 129 H Total Protein 5.7 Albumin 3.6 Globulin 2.1 L Albumin/Globulin Ratio 1.7 Assessment & Plan Plan: Bridgett Viera is a 39-year-old male with no significant past medical history who presented to the ED on 11/16 for acute onset abdominal pain. He states that at around midnight he started to experience intense epigastric abdominal pain that radiated to his right upper quadrant and back with associated nausea and one episode of nonbloody emesis. Admitted for management of enlarged CBD as seen on MRCP and planned for ERCP. #Choledocolithiasis #Hx of cholecystectomy 2007 Around midnight, experienced intense epigastric abdominal pain that radiated to his right upper quadrant and back with associated nausea and one episode of nonbloody emesis. Denies fever, chills, diarrhea, constipation, hematuria, or dysuria. Cholecystectomy in 2006 in [facility] complicated by choledocholithiasis in the same month as his cholecystectomy and had stents placed but have since been removed and no other complications since. Imaging showed CBD dilatation (1.1-1.3 cm) with abrupt termination. Vitals stable without fevers, no leukocytosis, t bili and ALP wnl on admission but LFTs, ALP, and t bili all noted to increase overnight. ? GI consulted, appreciate recommendations ? ERCP planned for Sunday 11/19, n.p.o. after midnight ? Pain management: Ketorolac, Dilaudid (allergy to morphine) ? Zofran switched to [facility] Hospital management: Disposition: Pending clinical course and specialist recommendations Fluids: not indicated Diet: N.p.o. after midnight Lines: PIV DVT prophylaxis: SCDs GI prophylaxis: pantoprazole 40 mg daily CODE STATUS: full code Time Spent with Patient Time: Total time spent is greater than 50% in coordination of care (as documented) at patient's floor/unit and/or counseling patient: Time with patient: 25 - 35 minutes Reason for Continued Stay Reason for continued stay: other (ERCP) Quality Measures Quality Measures none
[2024-11-19] VITALS (16 sets, daily range): BP systolic 92–134; BP diastolic 59–89; PULSE 69–118; RESP 12–96; TEMP 36.1–36.8; O2SAT 93–100; BMI 27.3; BMI 27.4
[2024-11-19] MEDS: RINGERS LACTATED 1000 ML 1,000 ML 100 ML IV ×2 (00:25→09:50)
[2024-11-19] MEDS: HYDROmorphone INJ 2 MG/ML VIAL 1 MG IVP ×3 (00:39→21:03)
[2024-11-19] MEDS: METOCLOPRAMIDE INJ 5 MG/ML VIAL 2 ML 10 MG IVP ×3 (05:54→21:45)
[2024-11-19] MEDS: KETOROLAC INJ 30 MG/ML VIAL IVP ×3 (05:56→23:38)
[2024-11-19 05:59] LABS: Basophils % (Auto) 0 % (0-2.5); Eosinophils # (Auto) 0.5 Thou/mm3 (0.0-0.5); Eosinophils % (Auto) 8 % (0-10); Hematocrit 39.1 % (41.0-53.0); Hemoglobin 13.8 g/dL (13.5-16.0); Immature Granulocytes % (Auto) 0 % (0-0); Immature Granulocytes Auto 0.01 Thou/mm3 (0.00-0.00); Lymphocytes # (Auto) 1.8 Thou/mm3 (1.0-4.8); Lymphocytes % (Auto) 26 % (10-50); Mean Corpuscular HGB Conc 35.3 g/dl (31.0-37.0); Mean Corpuscular Hemoglobin 30.8 pg (25.0-35.0); Mean Corpuscular Volume 87 fL (80-100); Monocytes # (Auto) 0.5 Thou/mm3 (0.0-0.8); Monocytes % (Auto) 7 % (0-12); Neutrophils # (Auto) 4.1 Thou/mm3 (1.8-7.7); Neutrophils % (Auto) 59 % (37-80); Nucleated Red Blood Cell % 0 /100 WBC (0); Platelet Count 157 Thou/mm3 (140-440); Red Blood Count 4.48 Miln/mm3 (4.50-5.90); White Blood Count 6.9 Thou/mm3 (3.8-10.6)
[2024-11-19 06:11] LABS: Prothrombin Time 10.8 Seconds (9.0-12.2)
[2024-11-19 06:30] LABS: Alanine Aminotransferase 168 U/L (10-49); Albumin, Serum 3.7 gm/dL (3.5-5.0); Albumin/Globulin Ratio 1.9 (1.2-2.2); Alkaline Phosphatase 119 U/L (46-116); Anion Gap 7 (7-16); Aspartate Amino Transferase 35 U/L (0-34); BUN/Creatinine Ratio 13 Ratio (12-20); Bilirubin,Total 0.4 mg/dL (0.3-1.2); Blood Urea Nitrogen 13 mg/dL (9-23); Calcium 8.4 mg/dL (8.3-10.6); Calcium (Corrected) 8.6 mg/dL (8.5-10.1); Carbon Dioxide 29.8 mMol/L (20.0-31.0); Chloride 105 mMol/L (98-107); Estimated Creatinine Clearance 99.2 mL/min (>60); Glucose 109 mg/dL (74-106); Magnesium 1.8 mg/dL (1.6-2.6); Osmolality,Calculated 284 (275-295); Potassium 3.8 mMol/L (3.4-5.1); Sodium 142 mMol/L (136-145); Total Protein 5.7 gm/dL (5.7-8.2); eGFR > 60 See Note
--- NOTE | 2024-11-19 10:02 | XR_ITS ---
Examination: ERCP 27 spot fluoroscopic films of the abdomen Fluoroscopy Exam date and time: November 19, 2024 1344 hours INDICATIONS: Abdominal pain, enlarged common bile duct 12 mm with abrupt termination of the distal common bile duct on MRCP this morning TECHNIQUE AND FINDINGS: 27 spot fluoroscopic abdomen films Opacification enlarged common hepatic common bile duct Balloon sweeping of the duct Biliary stent in satisfactory position Fluoroscopy 60 seconds radiation dose 6.84 milligray 27 spot fluoroscopic films IMPRESSION: ERCP as above
[2024-11-19] MEDS: PIPER/TAZO 3.375 GM PREMIX 3.375 GM/50 ML BAG IV (12:24)
[2024-11-19] MEDS: INDOMETHACIN 50 MG SUPP 100 MG PR (13:03)
--- NOTE | 2024-11-19 13:42 | SUR.PHASEI ---
1342: Pt. AAOx4, vitals stable, breathing unlabored, no complaint of pain or nausea, no dressing in place, no active bleed noted, report received from Leelee LI and MD Guzman.
--- NOTE | 2024-11-19 13:45 | PD.IMCONS ---
HPI Data of Consult Requesting Physician: Frantz Shields DO Primary Care Provider: Physician No Primary/Family Consult Narrative History of present illness: 39 year old male with abnormal MRCP, had cholecytstomy in 2006 with abdominal pain in RUQ radiating to back. cc:: cc: Frantz Shields DO Review of Systems Review of Systems Narrative Review of Systems: reviewed and neg Meds Home Medications and Allergies Home Medications ?Medication ?Instructions ?Recorded ?Confirmed ?Type No Known Home Medications 11/19/24 11/19/24 History Allergies Allergy/AdvReac Type Severity Reaction Status Date / Time promethazine HCl Allergy Intermediate SEVERE Verified 12/17/19 19:46 ABDOMINAL PAIN morphine AdvReac Intermediate ABDOMINAL Verified 12/17/19 19:46 PAIN Exam Vital Signs Temp Pulse Resp BP Pulse Ox O2 Del Method 97.7 F 74 19 107/75 94 L Room Air 11/19/24 11:54 11/19/24 11:54 11/19/24 11:54 11/19/24 11:54 11/19/24 11:54 11/19/24 04:00 Routine Abdominal Exam Comments: tender in RUQ Results Labs 11/19/24 04:56 11/19/24 04:56 Labs: Short CBC 11/19/24 Range/Units 04:56 WBC 6.9 (3.8-10.6) Thou/mm3 Hgb 13.8 (13.5-16.0) g/dL Hct 39.1 L (41.0-53.0) % Plt Count 157 (140-440) Thou/mm3 BMP 11/19/24 04:56 Sodium 142 Potassium 3.8 Chloride 105 Carbon Dioxide 29.8 BUN 13 Creatinine 1.0 Glucose 109 H Calcium 8.4 Liver Function 11/19/24 Range/Units 04:56 Total Bilirubin 0.4 (0.3-1.2) mg/dL AST 35 H (0-34) U/L ALT 168 H (10-49) U/L Alkaline Phosphatase 119 H (46-116) U/L Albumin 3.7 (3.5-5.0) gm/dL Assessment and Plan Additional Assessment & Plan Additional Plan: 39 year old male with abnormal MRCP, had cholecytstomy in 2006 with abdominal pain in RUQ radiating to back. ERCP with stent if stricture in cholangiography then needs ERCP with spygalss Will follow
[2024-11-19] MEDS: HYDROmorphone INJ 2 MG/ML VIAL 0.4 MG IVP ×4 (14:12→14:36)
[2024-11-19] MEDS: ACETAMINOPHEN IVPB 1,000 MG/100 ML VIAL 250 MG IV (14:49)
--- NOTE | 2024-11-19 15:10 | SUR.PHASEI ---
1510: Pt. AAOx4, vitals stable, breathing unlabored, no complaint of nausea, complaint of pain, educated pt. on gas pain, pt. taking sips of 7up and burping out some gas, pt. stated it helped a little, no dressing in place, no active bleed noted, report given to Joselyn LI.
--- NOTE | 2024-11-19 15:18 | PC.NURSE ---
Pt back from ERCP. Patient is experiencing a lot of pain. 10 out of 10. Received dilaudid in recovery. Too soon to give more dilaudid. Called Dr. Leary to make aware of patient's unrelieved pain.
[2024-11-19] MEDS: SIMETHICONE 80 MG CHEW PO ×2 (15:47→20:11)
[2024-11-19] MEDS: HYDROmorphone INJ 2 MG/ML VIAL 0.5 MG IVP ×2 (15:47→19:48)
--- NOTE | 2024-11-19 16:30 | PC.NURSE ---
Pt still complaining of pain. Dr. Leary ordered one time dose dilaudid, along with simethicone to help with gas from procedure. Patient gaurding and groaning.
--- NOTE | 2024-11-19 17:09 | ESPR_ITS ---
<Statement entered by Antonia Moser MD - 11/19/24 17:58> Overnight, patient's pain was controlled with current pain medications on board. Patient was prepped for ERCP today. ERCP showed biliary stricture in lower third of main bile duct and severe dilation of the middle and upper third of the main bile duct due to stricture. There was washout of biliary tree and stent was placed in common bile duct. GI recommended to advance diet as tolerated. In the future, patient will need another ERCP with spyglass to examine and biopsy the distal common bile duct. Post procedure, patient was seen and examined at bedside. Patient appears to be in severe pain and will increase patient's pain regimen to IV Dilaudid 0.5 mg Q4 and IV Toradol 30 every 6 and will continue to evaluate for patient's pain. Patient also appears to have a lot of gas, and will try simethicone 4 times daily. I discussed with and supervised the international project engineer physician who took care of this patient. I personally saw and examined the patient and discussed the assessment and plan with the entire medicine team, including my attending Dr. Shields, I agree with most of the assessment and plan as documented below Antonia Moser M.D. PGY-2 Disclaimer: Despite multiple revisions, due to the dictation software being used, the document bellow may not be free of grammatical errors including phonetic/typographic errors. However, this does not deter from our commitment to providing health care in the patient's best interest in mind. Documentation for date of: 11/19/24 Subjective Subjective Interval history: No acute overnight events noted. Seen and examined at bedside prior to ERCP and continued to endorse abdominal pain. Underwent ERCP with single, moderate biliary stricture found in lower third of main bile duct, middle and upper thirds of main bile duct severely dilated secondary to stricture, sludge found in biliary tree, and one stent placed in CBD. After procedure, patient continues to endorse significant abdominal pain for which will treat with multi- modal analgesia. Given additional dilaudid and added simethicone and Toradol. Exam Vital Signs Temp Pulse Resp BP Pulse Ox O2 Del Method 98.0 F 85 20 119/84 93 L Room Air 11/19/24 16:00 11/19/24 16:00 11/19/24 16:00 11/19/24 16:00 11/19/24 16:00 11/19/24 04:00 Narrative Exam Exam prior to ERCP: General: AOx3, moderate distress, able to speak full sentences HEENT: NC/AT, mucous membranes moist, bilateral sclera anicteric Cardiovascular: regular rate and rhythm, S1/S2 present, no murmurs appreciated Pulmonary: clear to auscultation bilaterally, no rales/rhonchi/wheezes Abdominal: epigastric and RUQ tenderness that radiates to back, soft, non- distended, no rebound/guarding Musculoskeletal: normal ROM, no peripheral edema Skin: warm and dry, intact, no rashes Neuro: CN II-XII intact, no focal deficits Objective Labs 11/19/24 18:45 11/20/24 04:49 Labs: Laboratory Results - last 24 hr 11/19/24 04:56 WBC 6.9 RBC 4.48 L Hgb 13.8 Hct 39.1 L MCV 87 MCH 30.8 MCHC 35.3 RDW Std Deviation 40.0 Plt Count 157 Neut % (Auto) 59 Lymph % (Auto) 26 [place] % (Auto) 7 Eos % (Auto) 8 Baso % (Auto) 0 Neut # (Auto) 4.1 Lymph # (Auto) 1.8 [place] # (Auto) 0.5 Eos # (Auto) 0.5 Baso # (Auto) 0.0 Immature Gran # (Auto) 0.01 H Absolute Nucleated RBC 0.00 Immature Gran % 0 Nucleated RBC % 0 PT 10.8 INR 1.0 Sodium 142 Potassium 3.8 Chloride 105 Carbon Dioxide 29.8 Anion Gap 7 BUN 13 Creatinine 1.0 Estim Creat Clear Calc 99.2 eGFR > 60 BUN/Creatinine Ratio 13 Glucose 109 H Calculated Osmolality 284 Calcium 8.4 Corrected Calcium 8.6 Phosphorus 3.0 Magnesium 1.8 Total Bilirubin 0.4 AST 35 H ALT 168 H Alkaline Phosphatase 119 H Total Protein 5.7 Albumin 3.7 Globulin 2.0 L Albumin/Globulin Ratio 1.9 Quality Measures Quality Measures none Assessment & Plan Assessment Current Active Medications: Generic Name Dose Route Start Last Admin Trade Name Freq PRN Reason Stop Dose Admin Acetaminophen 650 mg 11/16/24 12:20 11/18/24 12:43 Acetaminophen 325 Mg Tablet PO 12/16/24 12:19 650 mg Q6H PRN Administration PAIN OR FEVER > 100.4 Protocol Diphenhydramine HCl 25 mg 11/16/24 12:42 Diphenhydramine Elix 25 Mg/10 Ml Udc PO 12/16/24 12:41 X1 PRN rash, itching Hydromorphone HCl 1 mg 11/17/24 11:33 11/19/24 09:50 Hydromorphone Inj 2 Mg/Ml Vial IVP 11/21/24 12:59 1 mg Q4HR PRN Administration PAIN SCALE 7-10 (Severe Ketorolac Tromethamine 30 mg 11/16/24 16:24 11/19/24 05:56 Ketorolac Inj 30 Mg/Ml Vial IVP 11/21/24 16:23 30 mg Q6HR PRN Administration PAIN SCALE 4-6 (Moderate Metoclopramide HCl 10 mg 11/17/24 15:14 11/19/24 15:46 Metoclopramide Inj 5 Mg/Ml Vial 2 Ml IVP 12/17/24 15:13 10 mg Q6HR PRN Administration NAUSEA Protocol Pantoprazole Sodium 40 mg 11/17/24 09:00 11/19/24 09:45 Pantoprazole 40 Mg Tablet PO 12/17/24 08:59 Not Given QDAY CHARLES Plan Bridgett Viera is a 39-year-old male with no significant past medical history who presented to the ED on 11/16 for acute onset abdominal pain. He states that at around midnight he started to experience intense epigastric abdominal pain that radiated to his right upper quadrant and back with associated nausea and one episode of nonbloody emesis. Admitted for management of enlarged CBD as seen on MRCP and planned for ERCP. 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 Denies fever, chills, diarrhea, constipation, hematuria, or dysuria. Cholecystectomy in 2006 in [place] complicated by choledocholithiasis in the same month as his cholecystectomy and had stents placed but have since been removed and no other complications since. Imaging showed CBD dilatation (1.1-1.3 cm) with abrupt termination. Vitals stable without fevers, no leukocytosis, t bili and ALP wnl on admission but LFTs, ALP, and t bili all noted to increase overnight. ERCP 11/19: single, moderate biliary stricture found in lower third of main bile duct, middle and upper thirds of main bile duct severely dilated secondary to stricture, sludge found in biliary tree, and one stent placed in CBD. ? GI consulted, appreciate recommendations ? Started on clear liquid, plan to advance as tolerated ? Pain management: Ketorolac, norco, Dilaudid (allergy to morphine), simethicone ? Reglan for nausea Hospital management: Disposition: observation status-post ERCP, requiring IV pain medication Fluids: not indicated Diet: clear liquid Lines: PIV DVT prophylaxis: SCDs GI prophylaxis: pantoprazole 40 mg daily CODE STATUS: full code ----- Plan discussed with attending physician Dr. Shields and senior resident physician Dr. Shanti Leary MD PGY-1 Internal Medicine Attending Provider Attestation/Addendum I have discussed and was present for the essential components of the history, physical examination, diagnosis, and treatment plan with the resident. I agree with the patient's care as documented by the resident and amended herein by me. Abdi Shields, DO. Patient seen and evaluated this AM. No acute events overnight, vital signs stable, patient afebrile, patient scheduled for ERCP 1130 this morning, will follow-up with operative report and further specialist recommendations, likely discharge on 11/20 pending recommendations Although this document has been carefully reviewed, there may still be some phonetic and other typographical errors. These errors are purely grammatical due to imperfections in the software program and should not be construed in any way to compromise the substance of the patient's medical care during this visit.
--- NOTE | 2024-11-19 17:35 | PC.NURSE ---
Pt still complaining of pain. Made Dr. Leary aware and gave patient toradol.
--- NOTE | 2024-11-19 18:33 | XR_ITS ---
Examination: Abdomen AP single view Technique: AP portable supine abdomen, single view Exam date and time: November 19, 2024 1848 hours INDICATIONS: Significant right-sided abdominal pain post-ERCP procedure today FINDINGS: Biliary stent in satisfactory position Moderate stool throughout the colon. No obstruction. No free air IMPRESSION: Nonobstructive bowel gas pattern. Biliary stent in satisfactory position
[2024-11-19 18:56] LABS: Basophils % (Auto) 0 % (0-2.5); Eosinophils % (Auto) 0 % (0-10); Hematocrit 44.1 % (41.0-53.0); Hemoglobin 15.5 g/dL (13.5-16.0); Immature Granulocytes % (Auto) 1 % (0-0); Immature Granulocytes Auto 0.07 Thou/mm3 (0.00-0.00); Lymphocytes # (Auto) 0.4 Thou/mm3 (1.0-4.8); Lymphocytes % (Auto) 4 % (10-50); Mean Corpuscular HGB Conc 35.1 g/dl (31.0-37.0); Mean Corpuscular Hemoglobin 30.5 pg (25.0-35.0); Mean Corpuscular Volume 87 fL (80-100); Monocytes # (Auto) 0.1 Thou/mm3 (0.0-0.8); Monocytes % (Auto) 1 % (0-12); Neutrophils % (Auto) 94 % (37-80); Nucleated Red Blood Cell % 0 /100 WBC (0); Platelet Count 174 Thou/mm3 (140-440); RDW Standard Deviation 39.1 fL (35.1-43.9); Red Blood Count 5.08 Miln/mm3 (4.50-5.90); White Blood Count 9.5 Thou/mm3 (3.8-10.6)
[2024-11-19 19:07] LABS: Lactate (Lactic Acid) 4.8 mMol/L (0.4-2.0)
[2024-11-19] MEDS: LIDOCAINE 5% 1 PATCH TOP (19:13)
[2024-11-19] MEDS: RINGERS LACTATED 500 ML 500 ML 100 ML IV (19:22)
--- NOTE | 2024-11-19 19:54 | XR_ITS ---
Examination: CT abdomen with intravenous contrast CT pelvis with intravenous contrast 2-D coronal reconstructions 2-D sagittal reconstructions Date and time of exam:November 19, 2024 2053 hours INDICATIONS: Epigastric pain today, enlargement, hepatic duct on CT abdomen and pelvis November [birth year], 1999. CTDI: vol (mGy) 7.68 DLP: (mGycm) 461 Technique: Multiple axial sections of the abdomen and pelvis have been obtained. 64 slice high-resolution scanner used. 370 3 mm axial sections have been obtained, post intravenous injection of 60 cc of Isovue 2-D sagittal, coronal reconstructions obtained. Low dose protocols were performed. One or more of the following dose reduction techniques were used; automated exposure control, adjustment of the mA and/or KV according to patient size, use of iterative reconstruction technique. Findings: No focal liver or splenic lesions Absent gallbladder Mild edema surrounding the pancreas Biliary stent satisfactory position No hydronephrosis or renal calculi Normal appendix No bowel obstruction Intact urinary bladder. IMPRESSION: Acute pancreatitis, no pseudocyst Biliary stent satisfactory position
[2024-11-19] MEDS: RINGERS LACTATED 1000 ML 1,000 ML 200 ML IV (20:07)
--- NOTE | 2024-11-19 20:26 | PC.NURSE ---
MD Trevino made aware that pt still on too much pain on his abdomen after dilaudid administration 30 mins ago, per MD will put order in.
[2024-11-19 20:36] LABS: Alanine Aminotransferase 331 U/L (10-49); Albumin, Serum 4.3 gm/dL (3.5-5.0); Albumin/Globulin Ratio 1.7 (1.2-2.2); Alkaline Phosphatase 187 U/L (46-116); Anion Gap 12 (7-16); Aspartate Amino Transferase 390 U/L (0-34); BUN/Creatinine Ratio 9 Ratio (12-20); Bilirubin,Total 0.9 mg/dL (0.3-1.2); Blood Urea Nitrogen 9 mg/dL (9-23); Carbon Dioxide 23.6 mMol/L (20.0-31.0); Chloride 104 mMol/L (98-107); Estimated Creatinine Clearance 104.8 mL/min (>60); Globulin 2.5 gm/dL (2.3-3.5); Glucose 187 mg/dL (74-106); Lipase 2437 U/L (12-53); Osmolality,Calculated 283 (275-295); Potassium 4.3 mMol/L (3.4-5.1); Sodium 140 mMol/L (136-145); Total Protein 6.8 gm/dL (5.7-8.2); eGFR > 60 See Note
[2024-11-19] MEDS: PANTOPRAZOLE INJ 40 MG VIAL IVP (21:03)
[2024-11-19] MEDS: SODIUM CHLORIDE 0.9% IV (21:46)
[2024-11-19] MEDS: MEROPENEM IV (21:46)
[2024-11-19 21:49] LABS: Reflex Lactate? Y
[2024-11-19 23:31] LABS: Lactic Acid, 3 HR 0.9 mMol/L (0.4-2.0)
[2024-11-19 23:50] LABS: C-Reactive Protein < 0.5 mg/dL (0.0-0.9)
[2024-11-20] VITALS (8 sets, daily range): BP systolic 105–145; BP diastolic 63–87; PULSE 76–105; RESP 16–979; TEMP 36.1–37.2; O2SAT 94–98
[2024-11-20] MEDS: RINGERS LACTATED 1000 ML 1,000 ML 250 ML IV ×4 (01:13→23:09)
[2024-11-20] MEDS: HYDROmorphone INJ 2 MG/ML VIAL 1 MG IVP ×2 (01:19→05:24)
[2024-11-20] MEDS: MEROPENEM IV (05:01)
[2024-11-20] MEDS: SODIUM CHLORIDE 0.9% IV (05:01)
[2024-11-20] MEDS: METOCLOPRAMIDE INJ 5 MG/ML VIAL 2 ML 10 MG IVP ×2 (05:28→13:41)
[2024-11-20 06:15] LABS: Alanine Aminotransferase 243 U/L (10-49); Albumin, Serum 3.6 gm/dL (3.5-5.0); Albumin/Globulin Ratio 1.6 (1.2-2.2); Alkaline Phosphatase 142 U/L (46-116); Anion Gap 10 (7-16); Aspartate Amino Transferase 114 U/L (0-34); BUN/Creatinine Ratio 10 Ratio (12-20); Bilirubin,Total 0.6 mg/dL (0.3-1.2); Blood Urea Nitrogen 8 mg/dL (9-23); Calcium 8.3 mg/dL (8.3-10.6); Calcium (Corrected) 8.6 mg/dL (8.5-10.1); Carbon Dioxide 24.6 mMol/L (20.0-31.0); Chloride 106 mMol/L (98-107); Creatinine (Component) 0.8 mg/dL (0.6-1.3); Estimated Creatinine Clearance 130.2 mL/min (>60); Globulin 2.2 gm/dL (2.3-3.5); Glucose 108 mg/dL (74-106); Osmolality,Calculated 280 (275-295); Potassium 4.4 mMol/L (3.4-5.1); Sodium 141 mMol/L (136-145); Total Protein 5.8 gm/dL (5.7-8.2); eGFR > 60 See Note
[2024-11-20] MEDS: KETOROLAC INJ 30 MG/ML VIAL IVP (08:09)
[2024-11-20] MEDS: PANTOPRAZOLE INJ 40 MG VIAL IVP (08:09)
[2024-11-20] MEDS: MORPHINE SULF INJ 10 MG/ML VIAL 3 MG IVP (08:56)
[2024-11-20] MEDS: DiphenhydrAMINE ELIX 25 MG/10 ML UDC PO (08:56)
[2024-11-20] MEDS: RINGERS LACTATED 1000 ML 1,000 ML 125 ML IV (08:57)
--- NOTE | 2024-11-20 10:08 | ESPR_ITS ---
<Statement entered by Antonia Moser MD - 11/20/24 13:49> I discussed with and supervised the customer success intern physician who took care of this patient. I personally saw and examined the patient and discussed the assessment and plan with the entire medicine team, including my attending Dr. Moreno, I agree with most of the assessment and plan as documented below Antonia Moser M.D. PGY-2 Documentation for date of: 11/20/24 Subjective Subjective Interval history: Overnight, patient continued to have significant abdominal pain requiring more IV pain medication and night team contacted heel sprayer, Dr. Bedolla, who recommended CT A/P and lipase. CT A/P showed acute pancreatitis without pseudocyst and biliary stent in satisfactory position and lipase elevated at 2400. Aggressive IVF were started, blood cultures taken, and started on meropenem. Seen and examined in AM and continued to have significant abdominal pain. Per patient, he only got a rash with morphine so dilaudid was switched to morphine and patient seems to have responded relatively well and continue on IVF. Exam Vital Signs Temp Pulse Resp BP Pulse Ox O2 Del Method 97.0 F 81 19 122/68 96 Room Air 11/20/24 08:00 11/20/24 08:00 11/20/24 08:00 11/20/24 08:00 11/20/24 08:00 11/20/24 08:00 Narrative Exam General: AOx3, significant distress due to stress, able to speak full sentences HEENT: NC/AT, mucous membranes moist, bilateral sclera anicteric Cardiovascular: regular rate and rhythm, S1/S2 present, no murmurs appreciated Pulmonary: clear to auscultation bilaterally, no rales/rhonchi/wheezes Abdominal: epigastric and RUQ tenderness that radiates to back, soft, non- distended, no rebound/guarding Musculoskeletal: normal ROM, no peripheral edema Skin: warm and dry, intact, no rashes Neuro: CN II-XII intact, no focal deficits Objective Labs 11/21/24 04:57 11/21/24 04:57 Labs: Laboratory Results - last 24 hr 11/19/24 11/19/24 11/20/24 18:45 23:20 04:49 WBC 9.5 RBC 5.08 Hgb 15.5 Hct 44.1 MCV 87 MCH 30.5 MCHC 35.1 RDW Std Deviation 39.1 Plt Count 174 Neut % (Auto) 94 H Lymph % (Auto) 4 L [place] % (Auto) 1 Eos % (Auto) 0 Baso % (Auto) 0 Neut # (Auto) 9.0 H Lymph # (Auto) 0.4 L [place] # (Auto) 0.1 Eos # (Auto) 0.0 Baso # (Auto) 0.0 Immature Gran # (Auto) 0.07 H Absolute Nucleated RBC 0.00 Immature Gran % 1 H Nucleated RBC % 0 Sodium 140 141 Potassium 4.3 D 4.4 Chloride 104 106 Carbon Dioxide 23.6 24.6 Anion Gap 12 10 BUN 9 8 L Creatinine 1.0 0.8 Estim Creat Clear Calc 104.8 130.2 eGFR > 60 > 60 BUN/Creatinine Ratio 9 L 10 L Glucose 187 H D 108 H D Calculated Osmolality 283 280 Lactic Acid 4.8 H* 0.9 Calcium 9.0 8.3 Corrected Calcium 9.0 8.6 Total Bilirubin 0.9 D 0.6 AST 390 H 114 H ALT 331 H 243 H Alkaline Phosphatase 187 H D 142 H D C-Reactive Prot, Quant < 0.5 Total Protein 6.8 5.8 Albumin 4.3 D 3.6 D Globulin 2.5 2.2 L Albumin/Globulin Ratio 1.7 1.6 Lipase 2437 H* Quality Measures Quality Measures none Assessment & Plan Assessment Current Active Medications: Generic Name Dose Route Start Last Admin Trade Name Freq PRN Reason Stop Dose Admin Acetaminophen 650 mg 11/16/24 12:20 11/18/24 12:43 Acetaminophen 325 Mg Tablet PO 12/16/24 12:19 650 mg Q6H PRN Administration PAIN OR FEVER > 100.4 Protocol Diphenhydramine HCl 25 mg 11/16/24 12:42 Diphenhydramine Elix 25 Mg/10 Ml Udc PO 12/16/24 12:41 X1 PRN rash, itching Meropenem 2,000 mg/ Sodium 100 mls @ 100 mls/hr 11/19/24 22:00 11/20/24 05:01 Chloride IV 11/26/24 21:59 100 mls/hr Q8HR CHARLES Administration Lactated Ringer's 1,000 mls @ 125 mls/hr 11/20/24 08:45 11/20/24 08:57 Lactated Ringers IV 11/21/24 00:43 125 mls/hr .Q8H CHARLES Administration Ketorolac Tromethamine 30 mg 11/16/24 16:24 11/20/24 08:09 Ketorolac Inj 30 Mg/Ml Vial IVP 11/21/24 16:23 30 mg Q6HR PRN Administration PAIN SCALE 4-6 (Moderate Metoclopramide HCl 10 mg 11/17/24 15:14 11/20/24 05:28 Metoclopramide Inj 5 Mg/Ml Vial 2 Ml IVP 12/17/24 15:13 10 mg Q6HR PRN Administration NAUSEA Protocol Morphine Sulfate 4 mg 11/20/24 09:29 Morphine Sulf Inj 10 Mg/Ml Vial IVP 11/25/24 08:44 Q4HR PRN PAIN SCALE 7-10 (Severe Pantoprazole Sodium 40 mg 11/19/24 20:30 11/20/24 08:09 Pantoprazole Inj 40 Mg Vial IVP 12/19/24 20:29 40 mg QDAY CHARLES Administration Simethicone 80 mg 11/19/24 17:58 11/19/24 20:11 Simethicone 80 Mg Chew PO 12/19/24 17:57 80 mg QID PRN Administration GAS Plan Bridgett Viera is a 39-year-old male with no significant past medical history who presented to the ED on 11/16 for acute onset abdominal pain. He states that at around midnight he started to experience intense epigastric abdominal pain that radiated to his right upper quadrant and back with associated nausea and one episode of nonbloody emesis. Admitted for management of enlarged CBD as seen on MRCP and planned for ERCP. #Choledocolithiasis #Biliary stricture s/p stent placement 11/19/2024 #History of cholecystectomy 2006 #Pancreatitis s/p ERCP Acute onset epigastric abdominal pain that radiated to RUQ and back with associated nausea and one episode of nonbloody emesis. Cholecystectomy in 2006 in [place] complicated by choledocholithiasis in the same month as cholecystectomy and had stents placed but have since been removed and no other complications since. Imaging showed CBD dilatation (1.1-1.3 cm) with abrupt termination. ERCP 11/19: single, moderate biliary stricture found in lower third of main bile duct, middle and upper thirds of main bile duct severely dilated secondary to stricture, sludge found in biliary tree, and one stent placed in CBD. CT A/P 11/19: acute pancreatitis without pseudocyst and biliary stent in satisfactory position and lipase elevated at 2400. ? GI consulted, appreciate recommendations ? Started on clear liquid, plan to advance as tolerated ? Pain management: Ketorolac, norco, morphine, simethicone ? Reglan for nausea ? LR at 125 cc/hr ? Follow-up blood culture ? Meropenem (11/20-) Hospital management: Disposition: observation status-post ERCP, requiring IV pain medication Fluids: not indicated Diet: clear liquid Lines: PIV DVT prophylaxis: SCDs GI prophylaxis: pantoprazole 40 mg daily CODE STATUS: full code ----- Plan discussed with attending physician Dr. Moreno and senior resident physician Dr. Shanti Leary MD PGY-1 Internal Medicine Attending Provider Attestation/Addendum I reviewed labs, imaging, EKG, home medications and prior available records. Face to face evaluation was performed by me. I have personally examined the patient and discussed assessment and plan with the IM team. I reviewed the resident note and agree with the plan with exceptions as below. Biliary stricture status post stenting Transaminitis Acute pancreatitis Status post ERCP. Status post stenting Continue pain management Advance diet as tolerated Continue meropenem per GI recommendation Trend LFTs: Downtrending
[2024-11-20] MEDS: MORPHINE SULF INJ 10 MG/ML VIAL IVP (10:41)
[2024-11-20 11:17] LABS: Basophils % (Auto) 0 % (0-2.5); Eosinophils # (Auto) 0.1 Thou/mm3 (0.0-0.5); Eosinophils % (Auto) 1 % (0-10); Hematocrit 42.8 % (41.0-53.0); Hemoglobin 15.1 g/dL (13.5-16.0); Immature Granulocytes % (Auto) 0 % (0-0); Immature Granulocytes Auto 0.05 Thou/mm3 (0.00-0.00); Lymphocytes # (Auto) 1.7 Thou/mm3 (1.0-4.8); Lymphocytes % (Auto) 12 % (10-50); Mean Corpuscular HGB Conc 35.3 g/dl (31.0-37.0); Mean Corpuscular Hemoglobin 30.4 pg (25.0-35.0); Mean Corpuscular Volume 86 fL (80-100); Monocytes % (Auto) 7 % (0-12); Neutrophils # (Auto) 10.9 Thou/mm3 (1.8-7.7); Neutrophils % (Auto) 79 % (37-80); Nucleated Red Blood Cell % 0 /100 WBC (0); Platelet Count 172 Thou/mm3 (140-440); RDW Standard Deviation 39.3 fL (35.1-43.9); Red Blood Count 4.96 Miln/mm3 (4.50-5.90); White Blood Count 13.8 Thou/mm3 (3.8-10.6)
--- NOTE | 2024-11-20 11:22 | PC.SS ---
SS follow up note; GI recommended to advance diet as tolerated. pain is being managed. Patient will discharge back home when medically cleared.
[2024-11-20 11:36] LABS: C-Reactive Protein < 0.5 mg/dL (0.0-0.9); Triglycerides 133 mg/dL (30-150)
[2024-11-20] MEDS: MEROPENEM INJ 1,000 MG in SODIUM CHLORIDE 0.9% (Popper) 50 ML 50 MG IV ×2 (13:28→21:03)
[2024-11-20] MEDS: MORPHINE SULF INJ 10 MG/ML VIAL 4 MG IVP ×5 (13:29→23:12)
--- NOTE | 2024-11-20 14:23 | ESPR_ITS ---
Documentation for date of: 11/20/24 Subjective Subjective Interval history: abdominal pain, on morphine, Exam Vital Signs Temp Pulse Resp BP Pulse Ox O2 Del Method 97.0 F 81 19 122/68 96 Room Air 11/20/24 08:00 11/20/24 08:00 11/20/24 08:00 11/20/24 08:00 11/20/24 08:00 11/20/24 08:00 Routine Abdominal Exam Comments: tenderness in epigastric area Objective Labs 11/20/24 11:10 11/20/24 04:49 Labs: Laboratory Results - last 24 hr 11/19/24 11/19/24 11/20/24 18:45 23:20 04:49 WBC 9.5 RBC 5.08 Hgb 15.5 Hct 44.1 MCV 87 MCH 30.5 MCHC 35.1 RDW Std Deviation 39.1 Plt Count 174 Neut % (Auto) 94 H Lymph % (Auto) 4 L [place] % (Auto) 1 Eos % (Auto) 0 Baso % (Auto) 0 Neut # (Auto) 9.0 H Lymph # (Auto) 0.4 L [place] # (Auto) 0.1 Eos # (Auto) 0.0 Baso # (Auto) 0.0 Immature Gran # (Auto) 0.07 H Absolute Nucleated RBC 0.00 Immature Gran % 1 H Nucleated RBC % 0 Sodium 140 141 Potassium 4.3 D 4.4 Chloride 104 106 Carbon Dioxide 23.6 24.6 Anion Gap 12 10 BUN 9 8 L Creatinine 1.0 0.8 Estim Creat Clear Calc 104.8 130.2 eGFR > 60 > 60 BUN/Creatinine Ratio 9 L 10 L Glucose 187 H D 108 H D Calculated Osmolality 283 280 Lactic Acid 4.8 H* 0.9 Calcium 9.0 8.3 Corrected Calcium 9.0 8.6 Total Bilirubin 0.9 D 0.6 AST 390 H 114 H ALT 331 H 243 H Alkaline Phosphatase 187 H D 142 H D C-Reactive Prot, Quant < 0.5 Total Protein 6.8 5.8 Albumin 4.3 D 3.6 D Globulin 2.5 2.2 L Albumin/Globulin Ratio 1.7 1.6 Triglycerides Lipase 2437 H* 11/20/24 11:10 WBC 13.8 H D RBC 4.96 Hgb 15.1 Hct 42.8 MCV 86 MCH 30.4 MCHC 35.3 RDW Std Deviation 39.3 Plt Count 172 Neut % (Auto) 79 Lymph % (Auto) 12 [place] % (Auto) 7 Eos % (Auto) 1 Baso % (Auto) 0 Neut # (Auto) 10.9 H Lymph # (Auto) 1.7 [place] # (Auto) 1.0 H Eos # (Auto) 0.1 Baso # (Auto) 0.0 Immature Gran # (Auto) 0.05 H Absolute Nucleated RBC 0.00 Immature Gran % 0 Nucleated RBC % 0 Sodium Potassium Chloride Carbon Dioxide Anion Gap BUN Creatinine Estim Creat Clear Calc eGFR BUN/Creatinine Ratio Glucose Calculated Osmolality Lactic Acid Calcium Corrected Calcium Total Bilirubin AST ALT Alkaline Phosphatase C-Reactive Prot, Quant < 0.5 Total Protein Albumin Globulin Albumin/Globulin Ratio Triglycerides 133 Lipase Assessment & Plan A&P Narrative 39 year old male with abnormal MRCP, had cholecytstomy in 2006 with abdominal pain in RUQ radiating to back. Lipase 1999 CT scan showed pancreatitis ercp s/p stent ivf LR at 250 cc/hr abx cld check crp daily follow Time Spent With Patient Time: Total time spent is greater than 50% in coordination of care (as documented) at patient's floor/unit and/or counseling patient:
[2024-11-21] VITALS (8 sets, daily range): BP systolic 120–136; BP diastolic 76–90; PULSE 90–117; RESP 16–93; TEMP 36.2–37.2; O2SAT 91–99
[2024-11-21] MEDS: MORPHINE SULF INJ 10 MG/ML VIAL 4 MG IVP ×11 (02:02→22:54)
[2024-11-21] MEDS: RINGERS LACTATED 1000 ML 1,000 ML 250 ML IV ×5 (03:01→20:49)
[2024-11-21] MEDS: ACETAMINOPHEN 325 MG TABLET 650 MG PO ×3 (04:36→23:37)
[2024-11-21] MEDS: MEROPENEM INJ 1,000 MG in SODIUM CHLORIDE 0.9% (Popper) 50 ML 50 MG IV ×3 (05:21→22:44)
[2024-11-21 06:19] LABS: Basophils % (Auto) 0 % (0-2.5); Eosinophils # (Auto) 0.1 Thou/mm3 (0.0-0.5); Eosinophils % (Auto) 1 % (0-10); Hematocrit 42.4 % (41.0-53.0); Hemoglobin 14.5 g/dL (13.5-16.0); Immature Granulocytes % (Auto) 0 % (0-0); Immature Granulocytes Auto 0.04 Thou/mm3 (0.00-0.00); Lymphocytes # (Auto) 1.2 Thou/mm3 (1.0-4.8); Lymphocytes % (Auto) 9 % (10-50); Mean Corpuscular HGB Conc 34.2 g/dl (31.0-37.0); Mean Corpuscular Hemoglobin 30.6 pg (25.0-35.0); Mean Corpuscular Volume 90 fL (80-100); Monocytes # (Auto) 1.2 Thou/mm3 (0.0-0.8); Monocytes % (Auto) 9 % (0-12); Neutrophils # (Auto) 10.8 Thou/mm3 (1.8-7.7); Neutrophils % (Auto) 81 % (37-80); Nucleated Red Blood Cell % 0 /100 WBC (0); Platelet Count 164 Thou/mm3 (140-440); RDW Standard Deviation 41.7 fL (35.1-43.9); Red Blood Count 4.74 Miln/mm3 (4.50-5.90); White Blood Count 13.3 Thou/mm3 (3.8-10.6)
[2024-11-21 06:35] LABS: Anion Gap 11 (7-16); BUN/Creatinine Ratio 8 Ratio (12-20); Blood Urea Nitrogen 6 mg/dL (9-23); C-Reactive Protein 6.6 mg/dL (0.0-0.9); Calcium 8.3 mg/dL (8.3-10.6); Carbon Dioxide 26.8 mMol/L (20.0-31.0); Chloride 103 mMol/L (98-107); Creatinine (Component) 0.8 mg/dL (0.6-1.3); Estimated Creatinine Clearance 119.9 mL/min (>60); Glucose 106 mg/dL (74-106); Osmolality,Calculated 278 (275-295); Phosphorous 2.3 mg/dL (2.4-5.1); Potassium 3.6 mMol/L (3.4-5.1); Sodium 141 mMol/L (136-145); eGFR > 60 See Note
[2024-11-21] MEDS: ONDANSETRON INJ 2 MG/ML INJ 2 ML 4 MG IV (08:08)
[2024-11-21] MEDS: PANTOPRAZOLE 40 MG TABLET PO (08:09)
[2024-11-21 08:43] LABS: Alanine Aminotransferase 160 U/L (10-49); Albumin, Serum 3.7 gm/dL (3.5-5.0); Alkaline Phosphatase 126 U/L (46-116); Aspartate Amino Transferase 34 U/L (0-34); Bilirubin,Direct 0.3 mg/dL (0.0-0.3); Bilirubin,Total 0.8 mg/dL (0.3-1.2); Total Protein 5.6 gm/dL (5.7-8.2)
--- NOTE | 2024-11-21 09:14 | ESPR_ITS ---
Documentation for date of: 11/21/24 Subjective Subjective Interval history: No acute overnight events noted. Seen and examined at bedside and patient continues to be in significant pain. IV pain medications were switched from dilaudid to morphine, which brings his pain from 9/10 to 8/10. No fevers overnight, but tachycardic likely due to pain. Labs show improvement in LFTs and ALP, and will obtain daily CRP per GI recommendations. Currently on clear liquid diet and states he experiences pain when eating. Additionally, attempted to have a bowel movement but was unsuccessful. Continues to endorse nausea that is alleviated with antiemetics. Will continue with aggressive IVF, monitor urine output, pain management, and diet as tolerated. Exam Vital Signs Temp Pulse Resp BP Pulse Ox O2 Del Method 98.5 F 107 H 16 129/87 H 91 L Room Air 11/21/24 08:00 11/21/24 08:00 11/21/24 08:00 11/21/24 08:00 11/21/24 08:00 11/21/24 08:00 Narrative Exam General: AOx3, significant distress due to stress, able to speak full sentences HEENT: NC/AT, mucous membranes moist, bilateral sclera anicteric Cardiovascular: regular rate and rhythm, S1/S2 present, no murmurs appreciated Pulmonary: clear to auscultation bilaterally, no rales/rhonchi/wheezes Abdominal: epigastric and RUQ tenderness, soft, non-distended, no rebound/guarding Musculoskeletal: normal ROM, no peripheral edema Skin: warm and dry, intact, no rashes Neuro: CN II-XII intact, no focal deficits Objective Labs 11/22/24 04:49 11/22/24 04:49 Labs: Laboratory Results - last 24 hr 11/20/24 11/21/24 11:10 04:57 WBC 13.8 H D 13.3 H RBC 4.96 4.74 Hgb 15.1 14.5 Hct 42.8 42.4 MCV 86 90 MCH 30.4 30.6 MCHC 35.3 34.2 RDW Std Deviation 39.3 41.7 Plt Count 172 164 Neut % (Auto) 79 81 H Lymph % (Auto) 12 9 L [place] % (Auto) 7 9 Eos % (Auto) 1 1 Baso % (Auto) 0 0 Neut # (Auto) 10.9 H 10.8 H Lymph # (Auto) 1.7 1.2 [place] # (Auto) 1.0 H 1.2 H Eos # (Auto) 0.1 0.1 Baso # (Auto) 0.0 0.0 Immature Gran # (Auto) 0.05 H 0.04 H Absolute Nucleated RBC 0.00 0.00 Immature Gran % 0 0 Nucleated RBC % 0 0 Sodium 141 Potassium 3.6 D Chloride 103 Carbon Dioxide 26.8 Anion Gap 11 BUN 6 L Creatinine 0.8 Estim Creat Clear Calc 119.9 eGFR > 60 BUN/Creatinine Ratio 8 L Glucose 106 Calculated Osmolality 278 Calcium 8.3 Phosphorus 2.3 L Total Bilirubin 0.8 Direct Bilirubin 0.3 AST 34 ALT 160 H Alkaline Phosphatase 126 H C-Reactive Prot, Quant < 0.5 6.6 H Total Protein 5.6 L Albumin 3.7 Triglycerides 133 Quality Measures Quality Measures none Assessment & Plan Assessment Current Active Medications: Generic Name Dose Route Start Last Admin Trade Name Freq PRN Reason Stop Dose Admin Acetaminophen 650 mg 11/16/24 12:20 11/21/24 04:36 Acetaminophen 325 Mg Tablet PO 12/16/24 12:19 650 mg Q6H PRN Administration PAIN OR FEVER > 100.4 Protocol Diphenhydramine HCl 25 mg 11/16/24 12:42 Diphenhydramine Elix 25 Mg/10 Ml Udc PO 12/16/24 12:41 X1 PRN rash, itching Lactated Ringer's 1,000 mls @ 250 mls/hr 11/20/24 10:51 11/21/24 08:08 Lactated Ringers IV 12/20/24 10:50 Not Given .Q4H CHARLES Meropenem 1,000 mg/ Sodium 50 mls @ 50 mls/hr 11/20/24 14:00 11/21/24 06:21 Chloride IV 11/26/24 21:59 Infused Q8HR CHARLES Infusion Morphine Sulfate 4 mg 11/20/24 15:30 11/21/24 08:09 Morphine Sulf Inj 10 Mg/Ml Vial IVP 11/25/24 15:29 4 mg Q2HR PRN Administration PAIN 7-10 Ondansetron HCl 4 mg 11/20/24 14:22 11/21/24 08:08 Ondansetron Inj 2 Mg/Ml Inj 2 Ml IV 12/20/24 14:21 4 mg Q6HR PRN Administration NAUSEA OR VOMITING Protocol Pantoprazole Sodium 40 mg 11/21/24 09:00 11/21/24 08:09 Pantoprazole 40 Mg Tablet PO 12/19/24 20:29 40 mg QDAY CHARLES Administration Simethicone 80 mg 11/19/24 17:58 11/19/24 20:11 Simethicone 80 Mg Chew PO 12/19/24 17:57 80 mg QID PRN Administration GAS Plan Bridgett Viera is a 39-year-old male with no significant past medical history who presented to the ED on 11/16 for acute onset abdominal pain. He states that at around midnight he started to experience intense epigastric abdominal pain that radiated to his right upper quadrant and back with associated nausea and one episode of nonbloody emesis. Admitted for management of enlarged CBD as seen on MRCP and planned for ERCP. #Choledocolithiasis #Biliary stricture s/p stent placement 11/19/2024 #History of cholecystectomy 2006 #Pancreatitis s/p ERCP Acute onset epigastric abdominal pain that radiated to RUQ and back with associated nausea and one episode of nonbloody emesis. Cholecystectomy in 2006 in [facility] complicated by choledocholithiasis in the same month as cholecystectomy and had stents placed but have since been removed and no other complications since. Imaging showed CBD dilatation (1.1-1.3 cm) with abrupt termination. ERCP 11/19: single, moderate biliary stricture found in lower third of main bile duct, middle and upper thirds of main bile duct severely dilated secondary to stricture, sludge found in biliary tree, and one stent placed in CBD. CT A/P 11/19: acute pancreatitis without pseudocyst and biliary stent in satisfactory position and lipase elevated at 2400. ? GI consulted, appreciate recommendations ? Started on clear liquid, plan to advance as tolerated ? Pain management: Ketorolac, norco, morphine, simethicone ? Reglan for nausea ? LR at 250 cc/hr ? Follow-up blood culture ? Meropenem (11/20-) Hospital management: Disposition: observation status-post ERCP, requiring IV pain medication Fluids: LR at 250 cc/hr Diet: clear liquid Lines: PIV DVT prophylaxis: SCDs GI prophylaxis: pantoprazole 40 mg daily CODE STATUS: full code ----- Plan discussed with attending physician Dr. Tiffanie Leary MD PGY-1 Internal Medicine Attending Provider Attestation/Addendum I reviewed labs, imaging, EKG, home medications and prior available records. Face to face evaluation was performed by me. I have personally examined the patient and discussed assessment and plan with the IM team. I reviewed the resident note and agree with the plan with exceptions as below. Biliary stricture status post stenting Transaminitis Acute pancreatitis Status post ERCP. Status post stenting Continue pain management Advance diet as tolerated Daily CRP Continue meropenem per GI recommendation Trend LFTs: Downtrending
--- NOTE | 2024-11-21 14:48 | PD.IMPROG ---
Documentation for date of: 11/21/24 Subjective Subjective Interval history: Pt was seen and examined and pain is better compare to yesterday Exam Vital Signs Temp Pulse Resp BP Pulse Ox O2 Del Method 97.6 F 108 H 18 120/76 94 L Room Air 11/21/24 12:00 11/21/24 13:13 11/21/24 13:13 11/21/24 12:00 11/21/24 12:00 11/21/24 12:00 Routine Abdominal Exam Comments: abdominal tenderness Objective Labs 11/21/24 04:57 11/21/24 04:57 Labs: Laboratory Results - last 24 hr 11/21/24 04:57 WBC 13.3 H RBC 4.74 Hgb 14.5 Hct 42.4 MCV 90 MCH 30.6 MCHC 34.2 RDW Std Deviation 41.7 Plt Count 164 Neut % (Auto) 81 H Lymph % (Auto) 9 L [place] % (Auto) 9 Eos % (Auto) 1 Baso % (Auto) 0 Neut # (Auto) 10.8 H Lymph # (Auto) 1.2 [place] # (Auto) 1.2 H Eos # (Auto) 0.1 Baso # (Auto) 0.0 Immature Gran # (Auto) 0.04 H Absolute Nucleated RBC 0.00 Immature Gran % 0 Nucleated RBC % 0 Sodium 141 Potassium 3.6 D Chloride 103 Carbon Dioxide 26.8 Anion Gap 11 BUN 6 L Creatinine 0.8 Estim Creat Clear Calc 119.9 eGFR > 60 BUN/Creatinine Ratio 8 L Glucose 106 Calculated Osmolality 278 Calcium 8.3 Phosphorus 2.3 L Total Bilirubin 0.8 Direct Bilirubin 0.3 AST 34 ALT 160 H Alkaline Phosphatase 126 H C-Reactive Prot, Quant 6.6 H Total Protein 5.6 L Albumin 3.7 Assessment & Plan A&P Narrative 39 year old male with abnormal MRCP, had cholecytstomy in 2006 with abdominal pain in RUQ radiating to back. Lipase 1999 CT scan showed mild pancreatitis ercp s/p stent CT scan: Mild edema surrounding the pancreas Biliary stent satisfactory position IMPRESSION: Acute pancreatitis, no pseudocyst Biliary stent satisfactory position Jayshree ivf LR at 250 cc/hr then decrease rate to 150 tomorrow abx cld as tolerated check crp daily follow Time Spent With Patient Time: Total time spent is greater than 50% in coordination of care (as documented) at patient's floor/unit and/or counseling patient:
[2024-11-21] MEDS: SIMETHICONE 80 MG CHEW PO (17:19)
[2024-11-22] VITALS: BP 119/75; PULSE 115; RESP 16; TEMP 36.5; O2SAT 91
[2024-11-22] MEDS: RINGERS LACTATED 1000 ML 1,000 ML 250 ML IV ×2 (01:02→04:21)
[2024-11-22] MEDS: MORPHINE SULF INJ 10 MG/ML VIAL 4 MG IVP ×10 (01:12→21:46)
[2024-11-22 04:00] VITALS: BP 112/75; PULSE 98; RESP 16; TEMP 36.2; O2SAT 92
[2024-11-22 05:31] LABS: Basophils % (Auto) 0 % (0-2.5); Eosinophils # (Auto) 0.4 Thou/mm3 (0.0-0.5); Eosinophils % (Auto) 4 % (0-10); Hematocrit 36.1 % (41.0-53.0); Immature Granulocytes % (Auto) 1 % (0-0); Immature Granulocytes Auto 0.05 Thou/mm3 (0.00-0.00); Lymphocytes # (Auto) 1.4 Thou/mm3 (1.0-4.8); Lymphocytes % (Auto) 13 % (10-50); Mean Corpuscular Hemoglobin 31.1 pg (25.0-35.0); Mean Corpuscular Volume 86 fL (80-100); Monocytes # (Auto) 0.9 Thou/mm3 (0.0-0.8); Monocytes % (Auto) 9 % (0-12); Neutrophils # (Auto) 7.5 Thou/mm3 (1.8-7.7); Neutrophils % (Auto) 73 % (37-80); Nucleated Red Blood Cell % 0 /100 WBC (0); Platelet Count 156 Thou/mm3 (140-440); RDW Standard Deviation 39.4 fL (35.1-43.9); Red Blood Count 4.18 Miln/mm3 (4.50-5.90); White Blood Count 10.3 Thou/mm3 (3.8-10.6)
[2024-11-22] MEDS: MEROPENEM INJ 1,000 MG in SODIUM CHLORIDE 0.9% (Popper) 50 ML 50 MG IV (05:53)
[2024-11-22] MEDS: ACETAMINOPHEN 325 MG TABLET 650 MG PO ×2 (06:02→12:35)
[2024-11-22] MEDS: ONDANSETRON INJ 2 MG/ML INJ 2 ML 4 MG IV ×2 (06:02→23:41)
[2024-11-22 06:04] LABS: Alanine Aminotransferase 94 U/L (10-49); Albumin, Serum 3.4 gm/dL (3.5-5.0); Albumin/Globulin Ratio 1.5 (1.2-2.2); Alkaline Phosphatase 101 U/L (46-116); Anion Gap 10 (7-16); Aspartate Amino Transferase 18 U/L (0-34); BUN/Creatinine Ratio 10 Ratio (12-20); Blood Urea Nitrogen 8 mg/dL (9-23); Calcium 8.2 mg/dL (8.3-10.6); Calcium (Corrected) 8.7 mg/dL (8.5-10.1); Carbon Dioxide 24.6 mMol/L (20.0-31.0); Chloride 105 mMol/L (98-107); Creatinine (Component) 0.8 mg/dL (0.6-1.3); Estimated Creatinine Clearance 119.9 mL/min (>60); Globulin 2.2 gm/dL (2.3-3.5); Glucose 90 mg/dL (74-106); Magnesium 1.6 mg/dL (1.6-2.6); Osmolality,Calculated 277 (275-295); Phosphorous 2.8 mg/dL (2.4-5.1); Potassium 3.9 mMol/L (3.4-5.1); Sodium 140 mMol/L (136-145); Total Protein 5.6 gm/dL (5.7-8.2); eGFR > 60 See Note
[2024-11-22 06:10] LABS: C-Reactive Protein 17.4 mg/dL (0.0-0.9)
[2024-11-22 08:00] VITALS: BP 128/87; PULSE 102; RESP 16; TEMP 36.3; O2SAT 94
[2024-11-22] MEDS: PANTOPRAZOLE 40 MG TABLET PO (08:13)
[2024-11-22] MEDS: RINGERS LACTATED 1000 ML 1,000 ML 150 ML IV ×2 (09:30→16:30)
--- NOTE | 2024-11-22 10:36 | PD.RESPRO ---
Documentation for date of: 11/22/24 Subjective Subjective Interval history: No acute overnight events noted. [facility] and patient continues to have significant abdominal pain that does not go below 8/10. Tries to consume clear liquid diet but has associated increase in pain. No BMs but passing gas. Vital signs show sinus tachycardia with heart rate between 100-115, afebrile, leukocytosis/LFTs/ALP improving. However, CRP increased from 6.6 to 17.4. Touch base with Dr. Bedolla who recommended to continue IVF at decreased rate of 150 cc/h, continue to trend CRP, and encourage p.o. intake as tolerated. Exam Vital Signs Temp Pulse Resp BP Pulse Ox O2 Del Method 97.4 F 102 H 16 128/87 H 94 L Room Air 11/22/24 08:00 11/22/24 08:00 11/22/24 08:00 11/22/24 08:00 11/22/24 08:00 11/22/24 08:00 Narrative Exam General: AOx3, significant distress due to stress, able to speak full sentences HEENT: NC/AT, mucous membranes moist, bilateral sclera anicteric Cardiovascular: regular rate and rhythm, S1/S2 present, no murmurs appreciated Pulmonary: clear to auscultation bilaterally, no rales/rhonchi/wheezes Abdominal: epigastric and RUQ tenderness, soft, non-distended, no rebound/guarding Musculoskeletal: normal ROM, no peripheral edema Skin: warm and dry, intact, no rashes Neuro: CN II-XII intact, no focal deficits Objective Labs 11/23/24 05:09 11/23/24 05:09 Labs: Laboratory Results - last 24 hr 11/22/24 04:49 WBC 10.3 RBC 4.18 L Hgb 13.0 L Hct 36.1 L MCV 86 MCH 31.1 MCHC 36.0 RDW Std Deviation 39.4 Plt Count 156 Neut % (Auto) 73 Lymph % (Auto) 13 [place] % (Auto) 9 Eos % (Auto) 4 Baso % (Auto) 0 Neut # (Auto) 7.5 Lymph # (Auto) 1.4 [place] # (Auto) 0.9 H Eos # (Auto) 0.4 Baso # (Auto) 0.0 Immature Gran # (Auto) 0.05 H Absolute Nucleated RBC 0.00 Immature Gran % 1 H Nucleated RBC % 0 Sodium 140 Potassium 3.9 Chloride 105 Carbon Dioxide 24.6 Anion Gap 10 BUN 8 L Creatinine 0.8 Estim Creat Clear Calc 119.9 eGFR > 60 BUN/Creatinine Ratio 10 L Glucose 90 Calculated Osmolality 277 Calcium 8.2 L Corrected Calcium 8.7 Phosphorus 2.8 Magnesium 1.6 Total Bilirubin 1.0 AST 18 ALT 94 H Alkaline Phosphatase 101 D C-Reactive Prot, Quant 17.4 H Total Protein 5.6 L Albumin 3.4 L Globulin 2.2 L Albumin/Globulin Ratio 1.5 Quality Measures Quality Measures none Assessment & Plan Assessment Current Active Medications: Generic Name Dose Route Start Last Admin Trade Name Freq PRN Reason Stop Dose Admin Acetaminophen 650 mg 11/16/24 12:20 11/22/24 06:02 Acetaminophen 325 Mg Tablet PO 12/16/24 12:19 650 mg Q6H PRN Administration PAIN OR FEVER > 100.4 Protocol Diphenhydramine HCl 25 mg 11/16/24 12:42 Diphenhydramine Elix 25 Mg/10 Ml Udc PO 12/16/24 12:41 X1 PRN rash, itching Meropenem 1,000 mg/ Sodium 50 mls @ 50 mls/hr 11/20/24 14:00 11/22/24 05:53 Chloride IV 11/26/24 21:59 50 mls/hr Q8HR CHARLES Administration Lactated Ringer's 1,000 mls @ 150 mls/hr 11/22/24 08:35 11/22/24 09:30 Lactated Ringers IV 12/22/24 08:34 150 mls/hr .[id number] CHARLES Administration Morphine Sulfate 4 mg 11/20/24 15:30 11/22/24 10:21 Morphine Sulf Inj 10 Mg/Ml Vial IVP 11/25/24 15:29 4 mg Q2HR PRN Administration PAIN 7-10 Ondansetron HCl 4 mg 11/20/24 14:22 11/22/24 06:02 Ondansetron Inj 2 Mg/Ml Inj 2 Ml IV 12/20/24 14:21 4 mg Q6HR PRN Administration NAUSEA OR VOMITING Protocol Pantoprazole Sodium 40 mg 11/21/24 09:00 11/22/24 08:13 Pantoprazole 40 Mg Tablet PO 12/19/24 20:29 40 mg QDAY CHARLES Administration Simethicone 80 mg 11/19/24 17:58 11/21/24 17:19 Simethicone 80 Mg Chew PO 12/19/24 17:57 80 mg QID PRN Administration GAS Plan Bridgett Viera is a 39-year-old male with no significant past medical history who presented to the ED on 11/16 for acute onset abdominal pain. He states that at around midnight he started to experience intense epigastric abdominal pain that radiated to his right upper quadrant and back with associated nausea and one episode of nonbloody emesis. Admitted for management of enlarged CBD as seen on MRCP and planned for ERCP. #Choledocolithiasis #Biliary stricture s/p stent placement 11/19/2024 #History of cholecystectomy 2006 #Pancreatitis s/p ERCP Acute onset epigastric abdominal pain that radiated to RUQ and back with associated nausea and one episode of nonbloody emesis. Cholecystectomy in 2006 in [facility] complicated by choledocholithiasis in the same month as cholecystectomy and had stents placed but have since been removed and no other complications since. Imaging showed CBD dilatation (1.1-1.3 cm) with abrupt termination. ERCP 11/19: single, moderate biliary stricture found in lower third of main bile duct, middle and upper thirds of main bile duct severely dilated secondary to stricture, sludge found in biliary tree, and one stent placed in CBD. CT A/P 11/19: acute pancreatitis without pseudocyst and biliary stent in satisfactory position and lipase elevated at 2400. ? GI consulted, appreciate recommendations ? Started on clear liquid, plan to advance as tolerated ? Pain management: Ketorolac, norco, morphine, simethicone ? Reglan for nausea ? LR at 150 cc/hr ? Follow-up blood culture ? Meropenem (11/20-) ? Trend CRP daily Hospital management: Disposition: observation status-post ERCP, requiring IV pain medication Fluids: LR at 250 cc/hr Diet: clear liquid Lines: PIV DVT prophylaxis: SCDs GI prophylaxis: pantoprazole 40 mg daily CODE STATUS: full code ----- Plan discussed with attending physician Dr. Tiffanie Leary MD PGY-1 Internal Medicine Attending Provider Attestation/Addendum I reviewed labs, imaging, EKG, home medications and prior available records. Face to face evaluation was performed by me. I have personally examined the patient and discussed assessment and plan with the IM team. I reviewed the resident note and agree with the plan with exceptions as below. Biliary stricture status post stenting Transaminitis Acute pancreatitis Status post ERCP. Status post stenting Remains in severe pain. Continue pain management Clear liquid diet. Advance diet as tolerated Daily CRP: Uptrending. Discussed with GI: Decreased IV fluids Continue meropenem per GI recommendation Trend LFTs: Downtrending
--- NOTE | 2024-11-22 11:03 | PC.SS ---
SS follow up note; Patient continues to have significant abdominal pain. Dr. Bedolla recommended to continue IVF. Patient will discharge back home when medically cleared.
--- NOTE | 2024-11-22 11:08 | ESPR_ITS ---
Subjective Subjective Interval history: not necrotizing pancreatitis noted. bc neg at 48h Exam Vital Signs Temp Pulse Resp BP Pulse Ox O2 Del Method 97.4 F 102 H 16 128/87 H 94 L Room Air 11/22/24 08:00 11/22/24 08:00 11/22/24 08:00 11/22/24 08:00 11/22/24 08:00 11/22/24 08:00 Narrative Exam not taking po yet. 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 Objective - Internal Medicine Labs 11/22/24 04:49 11/22/24 04:49 Labs: Laboratory Results - last 24 hr 11/22/24 04:49 WBC 10.3 RBC 4.18 L Hgb 13.0 L Hct 36.1 L MCV 86 MCH 31.1 MCHC 36.0 RDW Std Deviation 39.4 Plt Count 156 Neut % (Auto) 73 Lymph % (Auto) 13 [place] % (Auto) 9 Eos % (Auto) 4 Baso % (Auto) 0 Neut # (Auto) 7.5 Lymph # (Auto) 1.4 [place] # (Auto) 0.9 H Eos # (Auto) 0.4 Baso # (Auto) 0.0 Immature Gran # (Auto) 0.05 H Absolute Nucleated RBC 0.00 Immature Gran % 1 H Nucleated RBC % 0 Sodium 140 Potassium 3.9 Chloride 105 Carbon Dioxide 24.6 Anion Gap 10 BUN 8 L Creatinine 0.8 Estim Creat Clear Calc 119.9 eGFR > 60 BUN/Creatinine Ratio 10 L Glucose 90 Calculated Osmolality 277 Calcium 8.2 L Corrected Calcium 8.7 Phosphorus 2.8 Magnesium 1.6 Total Bilirubin 1.0 AST 18 ALT 94 H Alkaline Phosphatase 101 D C-Reactive Prot, Quant 17.4 H Total Protein 5.6 L Albumin 3.4 L Globulin 2.2 L Albumin/Globulin Ratio 1.5 Assessment & Plan A&P Narrative pancreatitis abd pain changed to unasyn can go to po augmentin when taking po and go home if still here monday, will take a look briefly. ordered hiv and hep panel to complete w/u. Time Spent With Patient Time: Total time spent is greater than 50% in coordination of care (as documented) at patient's floor/unit and/or counseling patient:
[2024-11-22] MEDS: AMPICILLIN/SULBAC INJ 3 GM in SODIUM CHLORIDE 0.9% (POP) 100 ML IV ×3 (11:40→23:09)
[2024-11-22 11:55] VITALS: BP 122/80; PULSE 85; RESP 16; TEMP 36.6; O2SAT 95
[2024-11-22 11:59] VITALS: BMI 27.4
[2024-11-22 12:30] LABS: HIV (1&2) Antibody Rapid Non-Reactive
--- NOTE | 2024-11-22 13:27 | ESCONSULT_ITS ---
RE: LEIDY THOMASON : 1985 DATE OF CONSULTATION: 11/22/2024 REFERRING PHYSICIAN: Dr. Shields REASON FOR CONSULTATION: Pancreatitis. HISTORY OF PRESENT ILLNESS: The patient is an unfortunate 39-year-old man who has increasing abdominal pain on his admission. Imaging failed to demonstrate necrotizing pancreatitis, so he had an ERCP the other day. He continues to have some abdominal pain, but is not visibly jaundiced. His labs are as noted. He has not had hepatitis panel as best as I can tell, nor an HIV test. We will get those. He does state he is not taking p.o. yet, so we will hold off on switching to p.o. Augmentin and switch him from meropenem to p.o. agent. Meropenem is sometimes given as an alternative to imipenem because of necrotizing pancreatitis, but really most experts agree that the approach for necrotizing pancreatitis is to reduce the risk of pancreatic abscess by giving a broad spectrum such as Zosyn. Five days is usually sufficient and so the prolonged course of meropenem is probably not indicated. I am going to go ahead and stop it and change him to IV Unasyn. He is a big man at 178 pounds, so we will go ahead and give him 3 grams every 6 hours. I will check on him again on Monday. EXAM: benign. abd sl tender sl distended. did not discuss etoh use at all A Pancreatitis. non necrotizing. P/RECS: po augmentin when taking po. for now, iv unasyn as empiric rx . DT: 11:28:40 TT: 12:14:00 Ref: [id number] - TID: [id number] [facility]
[2024-11-22 14:45] LABS: Hepatitis A Antibody IgM Non Reactive (Non React); Hepatitis B Core Antibody IgM Non Reactive (Non React); Hepatitis B Surface Antigen Non Reactive (Non React); Hepatitis C Antibody Non Reactive (Non React)
[2024-11-22 16:00] VITALS: BP 119/73; PULSE 88; RESP 18; TEMP 518.8; TEMP 966; O2SAT 95
[2024-11-22 20:00] VITALS: BP 125/83; PULSE 98; RESP 20; TEMP 36.2; O2SAT 94
[2024-11-23] VITALS: BP 130/82; PULSE 98; RESP 16; TEMP 36.7; O2SAT 92
--- NOTE | 2024-11-23 00:04 | PD.EVENT ---
Documentation for date of: 11/23/24 Event Note Event Note: mild pancreatitis crp went to 17 cld check crp daily if pain does not improve, repeat ct scan in 24-48 hours jessie ivf at 150 cc/hr d/w medicine team
[2024-11-23] MEDS: MORPHINE SULF INJ 10 MG/ML VIAL 4 MG IVP ×8 (00:09→22:04)
[2024-11-23] MEDS: RINGERS LACTATED 1000 ML 1,000 ML 150 ML IV ×3 (01:56→19:23)
[2024-11-23 04:00] VITALS: BP 121/86; RESP 19; TEMP 36.2; O2SAT 97
[2024-11-23] MEDS: AMPICILLIN/SULBAC INJ 3 GM in SODIUM CHLORIDE 0.9% (POP) 100 ML IV ×4 (06:04→23:37)
[2024-11-23 06:31] LABS: Basophils % (Auto) 0 % (0-2.5); Eosinophils # (Auto) 0.9 Thou/mm3 (0.0-0.5); Eosinophils % (Auto) 10 % (0-10); Hematocrit 38.7 % (41.0-53.0); Hemoglobin 13.6 g/dL (13.5-16.0); Immature Granulocytes % (Auto) 0 % (0-0); Immature Granulocytes Auto 0.03 Thou/mm3 (0.00-0.00); Lymphocytes # (Auto) 1.3 Thou/mm3 (1.0-4.8); Lymphocytes % (Auto) 15 % (10-50); Mean Corpuscular HGB Conc 35.1 g/dl (31.0-37.0); Mean Corpuscular Hemoglobin 30.9 pg (25.0-35.0); Mean Corpuscular Volume 88 fL (80-100); Monocytes # (Auto) 0.6 Thou/mm3 (0.0-0.8); Monocytes % (Auto) 7 % (0-12); Neutrophils # (Auto) 5.8 Thou/mm3 (1.8-7.7); Neutrophils % (Auto) 68 % (37-80); Nucleated Red Blood Cell % 0 /100 WBC (0); Platelet Count 159 Thou/mm3 (140-440); RDW Standard Deviation 39.8 fL (35.1-43.9); White Blood Count 8.6 Thou/mm3 (3.8-10.6)
[2024-11-23] MEDS: PANTOPRAZOLE 40 MG TABLET PO (07:16)
[2024-11-23 07:35] LABS: Alanine Aminotransferase 68 U/L (10-49); Albumin, Serum 3.6 gm/dL (3.5-5.0); Albumin/Globulin Ratio 1.6 (1.2-2.2); Alkaline Phosphatase 93 U/L (46-116); Anion Gap 10 (7-16); Aspartate Amino Transferase 12 U/L (0-34); BUN/Creatinine Ratio 9 Ratio (12-20); Bilirubin,Total 0.6 mg/dL (0.3-1.2); Blood Urea Nitrogen 7 mg/dL (9-23); Calcium 8.3 mg/dL (8.3-10.6); Calcium (Corrected) 8.6 mg/dL (8.5-10.1); Chloride 102 mMol/L (98-107); Creatinine (Component) 0.8 mg/dL (0.6-1.3); Estimated Creatinine Clearance 129.9 mL/min (>60); Globulin 2.2 gm/dL (2.3-3.5); Glucose 103 mg/dL (74-106); Magnesium 1.7 mg/dL (1.6-2.6); Osmolality,Calculated 279 (275-295); Phosphorous 2.6 mg/dL (2.4-5.1); Potassium 3.6 mMol/L (3.4-5.1); Sodium 141 mMol/L (136-145); Total Protein 5.8 gm/dL (5.7-8.2); eGFR > 60 See Note
[2024-11-23 07:40] VITALS: BP 120/80; PULSE 90; RESP 19; TEMP 36.2; O2SAT 97
--- NOTE | 2024-11-23 09:42 | ESPR_ITS ---
Documentation for date of: 11/23/24 Subjective Subjective Interval history: No acute overnight events noted. Seen and examined at bedside and patient continues to have significant abdominal pain but states that it is improving. Will continue current pain regimen as he rates it 8/10 in intensity. Encouraging to continue his diet as tolerated, no BMs yet. Per GI recs, consider repeat CT if symptoms do not improve within next 24 to 48 hours. Vital signs stable, afebrile, no leukocytosis. AST and ALT improving, ALP and T. bili improving, and CRP downtrending as well. Exam Vital Signs Temp Pulse Resp BP Pulse Ox O2 Del Method 97.1 F 90 19 120/80 97 Room Air 11/23/24 07:40 11/23/24 07:40 11/23/24 07:40 11/23/24 07:40 11/23/24 07:40 11/23/24 07:40 Narrative Exam General: AOx3, significant distress due to stress, able to speak full sentences HEENT: NC/AT, mucous membranes moist, bilateral sclera anicteric Cardiovascular: regular rate and rhythm, S1/S2 present, no murmurs appreciated Pulmonary: clear to auscultation bilaterally, no rales/rhonchi/wheezes Abdominal: epigastric and RUQ tenderness, soft, non-distended, no rebound/guarding Musculoskeletal: normal ROM, no peripheral edema Skin: warm and dry, intact, no rashes Neuro: CN II-XII intact, no focal deficits Objective Labs 11/23/24 05:09 11/23/24 05:09 Labs: Laboratory Results - last 24 hr 11/22/24 11/23/24 04:49 05:09 WBC 8.6 RBC 4.40 L Hgb 13.6 Hct 38.7 L MCV 88 MCH 30.9 MCHC 35.1 RDW Std Deviation 39.8 Plt Count 159 Neut % (Auto) 68 Lymph % (Auto) 15 [place] % (Auto) 7 Eos % (Auto) 10 Baso % (Auto) 0 Neut # (Auto) 5.8 Lymph # (Auto) 1.3 [place] # (Auto) 0.6 Eos # (Auto) 0.9 H Baso # (Auto) 0.0 Immature Gran # (Auto) 0.03 H Absolute Nucleated RBC 0.00 Immature Gran % 0 Nucleated RBC % 0 Sodium 141 Potassium 3.6 Chloride 102 Carbon Dioxide 29.0 Anion Gap 10 BUN 7 L Creatinine 0.8 Estim Creat Clear Calc 129.9 eGFR > 60 BUN/Creatinine Ratio 9 L Glucose 103 Calculated Osmolality 279 Calcium 8.3 Corrected Calcium 8.6 Phosphorus 2.6 Magnesium 1.7 Total Bilirubin 0.6 AST 12 ALT 68 H Alkaline Phosphatase 93 C-Reactive Prot, Quant > 10.0 H Total Protein 5.8 Albumin 3.6 Globulin 2.2 L Albumin/Globulin Ratio 1.6 Hepatitis A IgM Ab Non Reactive Hep Bs Antigen Non Reactive Hep B Core IgM Ab Non Reactive Hepatitis C Antibody Non Reactive HIV 1&2 Antibody Rapid Non-Reactive Quality Measures Quality Measures none Assessment & Plan Assessment Current Active Medications: Generic Name Dose Route Start Last Admin Trade Name Freq PRN Reason Stop Dose Admin Diphenhydramine HCl 25 mg 11/16/24 12:42 Diphenhydramine Elix 25 Mg/10 Ml Udc PO 12/16/24 12:41 X1 PRN rash, itching Lactated Ringer's 1,000 mls @ 150 mls/hr 11/22/24 08:35 11/23/24 01:56 Lactated Ringers IV 12/22/24 08:34 150 mls/hr .Q6H40M CHARLES Administration Ampicillin Sodium/Sulbactam 100 mls @ 200 mls/hr 11/22/24 12:00 11/23/24 06:04 Sodium 3 gm/ Sodium Chloride IV 11/29/24 11:59 200 mls/hr Q6HR CHARLES Administration Acetaminophen 1,000 mg in 100 mls @ 250 mls/hr 11/23/24 09:36 Ofirmev Inj IV 11/24/24 00:23 Q6HR PRN PAIN OR FEVER > 100.4 Morphine Sulfate 4 mg 11/20/24 15:30 11/23/24 07:15 Morphine Sulf Inj 10 Mg/Ml Vial IVP 11/25/24 15:29 4 mg Q2HR PRN Administration PAIN 7-10 Ondansetron HCl 4 mg 11/20/24 14:22 11/22/24 23:41 Ondansetron Inj 2 Mg/Ml Inj 2 Ml IV 12/20/24 14:21 4 mg Q6HR PRN Administration NAUSEA OR VOMITING Protocol Pantoprazole Sodium 40 mg 11/21/24 09:00 11/23/24 07:16 Pantoprazole 40 Mg Tablet PO 12/19/24 20:29 40 mg QDAY CHARLES Administration Simethicone 80 mg 11/19/24 17:58 11/21/24 17:19 Simethicone 80 Mg Chew PO 12/19/24 17:57 80 mg QID PRN Administration GAS Plan Bridgett Viera is a 39-year-old male with no significant past medical history who presented to the ED on 11/16 for acute onset abdominal pain. He states that at around midnight he started to experience intense epigastric abdominal pain that radiated to his right upper quadrant and back with associated nausea and one episode of nonbloody emesis. Admitted for management of enlarged CBD as seen on MRCP and planned for ERCP. #Choledocolithiasis #Biliary stricture s/p stent placement 11/19/2024 #History of cholecystectomy 2006 #Pancreatitis s/p ERCP Acute onset epigastric abdominal pain that radiated to RUQ and back with associated nausea and one episode of nonbloody emesis. Cholecystectomy in 2006 in [facility] complicated by choledocholithiasis in the same month as cholecystectomy and had stents placed but have since been removed and no other complications since. Imaging showed CBD dilatation (1.1-1.3 cm) with abrupt termination. ERCP 11/19: single, moderate biliary stricture found in lower third of main bile duct, middle and upper thirds of main bile duct severely dilated secondary to stricture, sludge found in biliary tree, and one stent placed in CBD. CT A/P 11/19: acute pancreatitis without pseudocyst and biliary stent in satisfactory position and lipase elevated at 2400. Meropenem (11/20-11/22) ? GI consulted, appreciate recommendations ? Started on clear liquid, plan to advance as tolerated ? Pain management: Ketorolac, norco, morphine, simethicone ? Reglan for nausea ? LR at 150 cc/hr ? Amox/clav 3 g IV q6h (11/22-) ? Follow-up blood culture ? Trend CRP daily Hospital management: Disposition: observation status-post ERCP, requiring IV pain medication Fluids: LR at 250 cc/hr Diet: clear liquid Lines: PIV DVT prophylaxis: SCDs GI prophylaxis: pantoprazole 40 mg daily CODE STATUS: full code ----- Plan discussed with attending physician Dr. Tiffanie Leary MD PGY-1 Internal Medicine Attending Provider Attestation/Addendum I reviewed labs, imaging, EKG, home medications and prior available records. Face to face evaluation was performed by me. I have personally examined the patient and discussed assessment and plan with the IM team. I reviewed the resident note and agree with the plan with exceptions as below. Biliary stricture status post stenting Transaminitis Acute pancreatitis Status post ERCP. Status post stenting Remains in severe pain. Continue pain management and wean off as tolerated Clear liquid diet. Advance diet as tolerated Daily CRP: Downtrending. Discussed with GI: Decreased IV fluids Changed antibiotics to Unasyn per ID recommendations Trend LFTs: Downtrending
[2024-11-23] MEDS: ONDANSETRON INJ 2 MG/ML INJ 2 ML 4 MG IV ×2 (09:54→23:42)
[2024-11-23 12:00] VITALS: BP 138/89; PULSE 91; RESP 19; TEMP 36.2; O2SAT 97
[2024-11-23 12:34] LABS: C-Reactive Protein 13.8 mg/dL (0.0-0.9)
[2024-11-23 12:35] LABS: C-Reactive Protein 12.8 mg/dL (0.0-0.9)
[2024-11-23 15:55] VITALS: BP 136/84; PULSE 89; RESP 19; TEMP 36.2; O2SAT 97
--- NOTE | 2024-11-23 16:14 | PC.SS ---
Per Dr. Moreno, patient remains hospitalized due to requiring IV medication.
[2024-11-23] MEDS: ACETAMINOPHEN IVPB 1,000 MG/100 ML VIAL 250 MG IV (16:25)
--- NOTE | 2024-11-23 19:40 | PC.NURSE ---
MD Trevino made aware thta pt last BM was on monday, will put order in.
[2024-11-23 20:00] VITALS: BP 120/87; PULSE 77; RESP 17; TEMP 36.1; O2SAT 96
[2024-11-23] MEDS: SENNA TABLET 2 TAB PO (21:25)
[2024-11-24] VITALS: BP 122/72; PULSE 85; RESP 18; TEMP 36.5; O2SAT 94
[2024-11-24] MEDS: MORPHINE SULF INJ 10 MG/ML VIAL 4 MG IVP ×4 (00:15→09:45)
[2024-11-24] MEDS: RINGERS LACTATED 1000 ML 1,000 ML 150 ML IV ×3 (02:33→20:08)
[2024-11-24 04:00] VITALS: BP 128/77; PULSE 74; RESP 18; TEMP 36.2; O2SAT 96
[2024-11-24] MEDS: AMPICILLIN/SULBAC INJ 3 GM in SODIUM CHLORIDE 0.9% (POP) 100 ML IV ×4 (05:02→23:59)
[2024-11-24] MEDS: ACETAMINOPHEN 325 MG TABLET 650 MG PO (05:21)
[2024-11-24 05:43] LABS: Basophils % (Auto) 0 % (0-2.5); Eosinophils # (Auto) 0.8 Thou/mm3 (0.0-0.5); Eosinophils % (Auto) 13 % (0-10); Hematocrit 39.2 % (41.0-53.0); Hemoglobin 13.8 g/dL (13.5-16.0); Immature Granulocytes % (Auto) 0 % (0-0); Immature Granulocytes Auto 0.01 Thou/mm3 (0.00-0.00); Lymphocytes # (Auto) 1.5 Thou/mm3 (1.0-4.8); Lymphocytes % (Auto) 24 % (10-50); Mean Corpuscular HGB Conc 35.2 g/dl (31.0-37.0); Mean Corpuscular Hemoglobin 31.1 pg (25.0-35.0); Mean Corpuscular Volume 88 fL (80-100); Monocytes # (Auto) 0.5 Thou/mm3 (0.0-0.8); Monocytes % (Auto) 8 % (0-12); Neutrophils # (Auto) 3.2 Thou/mm3 (1.8-7.7); Neutrophils % (Auto) 54 % (37-80); Nucleated Red Blood Cell % 0 /100 WBC (0); Platelet Count 202 Thou/mm3 (140-440); RDW Standard Deviation 40.3 fL (35.1-43.9); Red Blood Count 4.44 Miln/mm3 (4.50-5.90)
[2024-11-24 05:52] VITALS: BMI 27.9
[2024-11-24 06:19] LABS: Alanine Aminotransferase 51 U/L (10-49); Albumin, Serum 3.6 gm/dL (3.5-5.0); Albumin/Globulin Ratio 1.6 (1.2-2.2); Alkaline Phosphatase 86 U/L (46-116); Anion Gap 9 (7-16); Aspartate Amino Transferase 10 U/L (0-34); BUN/Creatinine Ratio 8 Ratio (12-20); Bilirubin,Total 0.5 mg/dL (0.3-1.2); Blood Urea Nitrogen 6 mg/dL (9-23); C-Reactive Protein 6.8 mg/dL (0.0-0.9); Calcium 8.5 mg/dL (8.3-10.6); Calcium (Corrected) 8.8 mg/dL (8.5-10.1); Carbon Dioxide 30.2 mMol/L (20.0-31.0); Chloride 104 mMol/L (98-107); Creatinine (Component) 0.8 mg/dL (0.6-1.3); Globulin 2.2 gm/dL (2.3-3.5); Glucose 106 mg/dL (74-106); Magnesium 1.9 mg/dL (1.6-2.6); Osmolality,Calculated 282 (275-295); Phosphorous 3.5 mg/dL (2.4-5.1); Potassium 3.6 mMol/L (3.4-5.1); Sodium 143 mMol/L (136-145); Total Protein 5.8 gm/dL (5.7-8.2); eGFR > 60 See Note
[2024-11-24] MEDS: PANTOPRAZOLE 40 MG TABLET PO (07:16)
[2024-11-24] MEDS: ONDANSETRON INJ 2 MG/ML INJ 2 ML 4 MG IV (07:17)
--- NOTE | 2024-11-24 07:18 | PC.SS ---
SS follow up note; Patient is on IV Pain Meds, possible discharge home tomorrow.
[2024-11-24] MEDS: SIMETHICONE 80 MG CHEW PO ×2 (07:23→20:13)
--- NOTE | 2024-11-24 07:24 | PD.RESPRO ---
Documentation for date of: 11/24/24 Subjective Subjective Interval history: No acute overnight events noted. Seen and examined at bedside and patient does not appear in significant discomfort. States the pain is similar to yesterday but has improved over time. States that he was able to consume most of his diet though it does bring on abdominal pain. No bowel movements yet. Vital signs stable. CBC unremarkable. AST, ALT, ALP, t bili, and CRP all are improving and BUN stable. Will touch base with GI for further recommendations. Exam Vital Signs Temp Pulse Resp BP Pulse Ox O2 Del Method 97.1 F 74 18 128/77 96 Room Air 11/24/24 04:00 11/24/24 04:00 11/24/24 04:00 11/24/24 04:00 11/24/24 04:00 11/24/24 00:00 Narrative Exam General: AOx3, significant distress due to stress, able to speak full sentences HEENT: NC/AT, mucous membranes moist, bilateral sclera anicteric Cardiovascular: regular rate and rhythm, S1/S2 present, no murmurs appreciated Pulmonary: clear to auscultation bilaterally, no rales/rhonchi/wheezes Abdominal: epigastric and RUQ tenderness, soft, non-distended, no rebound/guarding Musculoskeletal: normal ROM, no peripheral edema Skin: warm and dry, intact, no rashes Neuro: CN II-XII intact, no focal deficits Objective Labs 11/24/24 04:34 11/24/24 04:34 Labs: Laboratory Results - last 24 hr 11/23/24 11/23/24 11/24/24 05:09 11:24 04:34 WBC 6.0 RBC 4.44 L Hgb 13.8 Hct 39.2 L MCV 88 MCH 31.1 MCHC 35.2 RDW Std Deviation 40.3 Plt Count 202 D Neut % (Auto) 54 Lymph % (Auto) 24 [place] % (Auto) 8 Eos % (Auto) 13 H Baso % (Auto) 0 Neut # (Auto) 3.2 Lymph # (Auto) 1.5 [place] # (Auto) 0.5 Eos # (Auto) 0.8 H Baso # (Auto) 0.0 Immature Gran # (Auto) 0.01 H Absolute Nucleated RBC 0.00 Immature Gran % 0 Nucleated RBC % 0 Sodium 141 143 Potassium 3.6 3.6 Chloride 102 104 Carbon Dioxide 29.0 30.2 Anion Gap 10 9 BUN 7 L 6 L Creatinine 0.8 0.8 Estim Creat Clear Calc 129.9 132.0 eGFR > 60 > 60 BUN/Creatinine Ratio 9 L 8 L Glucose 103 106 Calculated Osmolality 279 282 Calcium 8.3 8.5 Corrected Calcium 8.6 8.8 Phosphorus 2.6 3.5 Magnesium 1.7 1.9 Total Bilirubin 0.6 0.5 AST 12 10 ALT 68 H 51 H Alkaline Phosphatase 93 86 C-Reactive Prot, Quant 13.8 H 12.8 H 6.8 H Total Protein 5.8 5.8 Albumin 3.6 3.6 Globulin 2.2 L 2.2 L Albumin/Globulin Ratio 1.6 1.6 Quality Measures Quality Measures none Assessment & Plan Assessment Current Active Medications: Generic Name Dose Route Start Last Admin Trade Name Freq PRN Reason Stop Dose Admin Diphenhydramine HCl 25 mg 11/16/24 12:42 Diphenhydramine Elix 25 Mg/10 Ml Udc PO 12/16/24 12:41 X1 PRN rash, itching Lactated Ringer's 1,000 mls @ 150 mls/hr 11/22/24 08:35 11/24/24 02:33 Lactated Ringers IV 12/22/24 08:34 150 mls/hr .Q6H40M CHARLES Administration Ampicillin Sodium/Sulbactam 100 mls @ 200 mls/hr 11/22/24 12:00 11/24/24 05:02 Sodium 3 gm/ Sodium Chloride IV 11/29/24 11:59 200 mls/hr Q6HR CHARLES Administration Morphine Sulfate 4 mg 11/20/24 15:30 11/24/24 07:15 Morphine Sulf Inj 10 Mg/Ml Vial IVP 11/25/24 15:29 4 mg Q2HR PRN Administration PAIN 7-10 Ondansetron HCl 4 mg 11/20/24 14:22 11/24/24 07:17 Ondansetron Inj 2 Mg/Ml Inj 2 Ml IV 12/20/24 14:21 4 mg Q6HR PRN Administration NAUSEA OR VOMITING Protocol Pantoprazole Sodium 40 mg 11/21/24 09:00 11/24/24 07:16 Pantoprazole 40 Mg Tablet PO 12/19/24 20:29 40 mg QDAY CHARLES Administration Sennosides 2 tab 05/17/25 21:10 11/23/24 21:25 Senna Tablet PO 12/23/24 21:09 2 tab QDAY PRN Administration CONSTIPATION Protocol Simethicone 80 mg 11/19/24 17:58 11/24/24 07:23 Simethicone 80 Mg Chew PO 12/19/24 17:57 80 mg QID PRN Administration GAS Plan Bridgett Viera is a 39-year-old male with no significant past medical history who presented to the ED on 11/16 for acute onset abdominal pain. He states that at around midnight he started to experience intense epigastric abdominal pain that radiated to his right upper quadrant and back with associated nausea and one episode of nonbloody emesis. Admitted for management of enlarged CBD as seen on MRCP and planned for ERCP. #Choledocolithiasis #Biliary stricture s/p stent placement 11/19/2024 #History of cholecystectomy 2006 #Pancreatitis s/p ERCP Acute onset epigastric abdominal pain that radiated to RUQ and back with associated nausea and one episode of nonbloody emesis. Cholecystectomy in 2006 in [facility] complicated by choledocholithiasis in the same month as cholecystectomy and had stents placed but have since been removed and no other complications since. Imaging showed CBD dilatation (1.1-1.3 cm) with abrupt termination. ERCP 11/19: single, moderate biliary stricture found in lower third of main bile duct, middle and upper thirds of main bile duct severely dilated secondary to stricture, sludge found in biliary tree, and one stent placed in CBD. CT A/P 11/19: acute pancreatitis without pseudocyst and biliary stent in satisfactory position and lipase elevated at 2400. Meropenem (11/20-11/22) ? GI consulted, appreciate recommendations ? Started on clear liquid, plan to advance as tolerated ? Pain management: Ketorolac, norco, morphine, simethicone ? Reglan for nausea ? LR at 150 cc/hr ? Amox/clav 3 g IV q6h (11/22-) ? Follow-up blood culture ? Trend CRP daily Hospital management: Disposition: observation status-post ERCP, requiring IV pain medication Fluids: LR at 250 cc/hr Diet: clear liquid Lines: PIV DVT prophylaxis: SCDs GI prophylaxis: pantoprazole 40 mg daily CODE STATUS: full code ----- Plan discussed with attending physician Dr. Tiffanie Leary MD PGY-1 Internal Medicine Attending Provider Attestation/Addendum I reviewed labs, imaging, EKG, home medications and prior available records. Face to face evaluation was performed by me. I have personally examined the patient and discussed assessment and plan with the IM team. I reviewed the resident note and agree with the plan with exceptions as below. Biliary stricture status post stenting Transaminitis Acute pancreatitis Status post ERCP. Status post stenting Remains in severe pain. Continue pain management and wean off as tolerated Advance diet to full liquid diet Daily CRP: Downtrending. Discussed with GI: Decreased IV fluids Changed antibiotics to Unasyn per ID recommendations Trend LFTs: Downtrending
[2024-11-24 08:00] VITALS: BP 114/82; PULSE 75; RESP 17; TEMP 36.4; O2SAT 96
[2024-11-24] MEDS: HYDROcodone/APAP 10/325 TAB PO ×2 (11:40→20:07)
[2024-11-24] MEDS: MORPHINE SULF INJ 10 MG/ML VIAL 3 MG IVP ×4 (13:40→23:59)
--- NOTE | 2024-11-24 16:48 | PC.NURSE ---
[facility] [id number].
--- NOTE | 2024-11-24 19:30 | PC.NURSE ---
Pt got up and took a shower, tolerated well.
[2024-11-24 20:00] VITALS: BP 116/84; PULSE 94; RESP 20; TEMP 36.8; O2SAT 93
[2024-11-24] MEDS: SENNA TABLET 2 TAB PO (22:11)
[2024-11-25] VITALS: BP 118/71; PULSE 70; RESP 16; TEMP 37.2; O2SAT 95
[2024-11-25] MEDS: RINGERS LACTATED 1000 ML 1,000 ML 150 ML IV ×3 (02:05→17:57)
[2024-11-25] MEDS: MORPHINE SULF INJ 10 MG/ML VIAL 3 MG IVP ×7 (03:23→22:54)
[2024-11-25 04:00] VITALS: BP 103/67; PULSE 79; RESP 17; TEMP 36.2; O2SAT 93
[2024-11-25] MEDS: AMPICILLIN/SULBAC INJ 3 GM in SODIUM CHLORIDE 0.9% (POP) 100 ML IV (05:12)
[2024-11-25 05:53] LABS: Basophils % (Auto) 0 % (0-2.5); Eosinophils # (Auto) 0.8 Thou/mm3 (0.0-0.5); Eosinophils % (Auto) 13 % (0-10); Hematocrit 37.9 % (41.0-53.0); Hemoglobin 13.1 g/dL (13.5-16.0); Immature Granulocytes % (Auto) 0 % (0-0); Immature Granulocytes Auto 0.01 Thou/mm3 (0.00-0.00); Lymphocytes # (Auto) 1.6 Thou/mm3 (1.0-4.8); Lymphocytes % (Auto) 29 % (10-50); Mean Corpuscular HGB Conc 34.6 g/dl (31.0-37.0); Mean Corpuscular Hemoglobin 30.8 pg (25.0-35.0); Mean Corpuscular Volume 89 fL (80-100); Monocytes # (Auto) 0.4 Thou/mm3 (0.0-0.8); Monocytes % (Auto) 7 % (0-12); Neutrophils # (Auto) 2.8 Thou/mm3 (1.8-7.7); Neutrophils % (Auto) 50 % (37-80); Nucleated Red Blood Cell % 0 /100 WBC (0); Platelet Count 208 Thou/mm3 (140-440); RDW Standard Deviation 40.3 fL (35.1-43.9); Red Blood Count 4.25 Miln/mm3 (4.50-5.90); White Blood Count 5.6 Thou/mm3 (3.8-10.6)
[2024-11-25 06:00] VITALS: BMI 27.3
[2024-11-25 06:12] LABS: Alanine Aminotransferase 39 U/L (10-49); Albumin, Serum 3.6 gm/dL (3.5-5.0); Albumin/Globulin Ratio 1.6 (1.2-2.2); Alkaline Phosphatase 82 U/L (46-116); Anion Gap 8 (7-16); Aspartate Amino Transferase 13 U/L (0-34); BUN/Creatinine Ratio 6 Ratio (12-20); Bilirubin,Total 0.4 mg/dL (0.3-1.2); Blood Urea Nitrogen < 5 mg/dL (9-23); C-Reactive Protein 3.6 mg/dL (0.0-0.9); Calcium 8.5 mg/dL (8.3-10.6); Calcium (Corrected) 8.8 mg/dL (8.5-10.1); Carbon Dioxide 29.8 mMol/L (20.0-31.0); Chloride 105 mMol/L (98-107); Creatinine (Component) 0.8 mg/dL (0.6-1.3); Estimated Creatinine Clearance 130.6 mL/min (>60); Globulin 2.2 gm/dL (2.3-3.5); Glucose 103 mg/dL (74-106); Magnesium 1.9 mg/dL (1.6-2.6); Osmolality,Calculated 282 (275-295); Phosphorous 3.7 mg/dL (2.4-5.1); Potassium 3.6 mMol/L (3.4-5.1); Sodium 143 mMol/L (136-145); Total Protein 5.8 gm/dL (5.7-8.2); eGFR > 60 See Note
[2024-11-25] MEDS: ONDANSETRON INJ 2 MG/ML INJ 2 ML 4 MG IV (07:54)
[2024-11-25] MEDS: KETOROLAC INJ 30 MG/ML VIAL 15 MG IVP (07:55)
[2024-11-25 08:00] VITALS: BP 121/81; PULSE 73; RESP 17; TEMP 36.3; O2SAT 96
--- NOTE | 2024-11-25 08:28 | XR_ITS ---
Examination: CT abdomen with intravenous contrast CT pelvis with intravenous contrast 2-D coronal reconstructions 2-D sagittal reconstructions Date and time of exam:November 25, 2024 1007 hours INDICATIONS: Right upper abdominal pain this week. CTDI: vol (mGy) 7.59 DLP: (mGycm) 455 Technique: Multiple axial sections of the abdomen and pelvis have been obtained. 64 slice high-resolution scanner used. 3 mm axial sections have been obtained, post intravenous injection 60 cc [id number] 2-D sagittal, coronal reconstructions obtained. Low dose protocols were performed. One or more of the following dose reduction techniques were used; automated exposure control, adjustment of the mA and/or KV according to patient size, use of iterative reconstruction technique. Findings: Atelectasis in the lower lung zones with minimal pleural disease Pneumobilia Biliary stent satisfactory position Absent gallbladder Mild edema about the pancreas Minimal perinephric stranding Aorta normal size Normal appendix No diverticulitis Bladder intact IMPRESSION: Suspicious for mild pancreatitis
[2024-11-25] MEDS: SIMETHICONE 80 MG CHEW PO ×2 (08:51→20:36)
[2024-11-25] MEDS: PANTOPRAZOLE 40 MG TABLET PO (08:51)
--- NOTE | 2024-11-25 09:04 | ESPR_ITS ---
Subjective Subjective Interval history: ate some yest. will try po augmentin. cx neg. Exam Vital Signs Temp Pulse Resp BP Pulse Ox O2 Del Method 97.3 F 73 17 121/81 96 Room Air 11/25/24 08:00 11/25/24 08:00 11/25/24 08:00 11/25/24 08:00 11/25/24 08:00 11/25/24 08:00 Narrative Exam allowed abd exam today. sl tenderness noted. Objective - Internal Medicine Labs 11/25/24 05:08 11/25/24 05:08 Labs: Laboratory Results - last 24 hr 11/25/24 05:08 WBC 5.6 RBC 4.25 L Hgb 13.1 L Hct 37.9 L MCV 89 MCH 30.8 MCHC 34.6 RDW Std Deviation 40.3 Plt Count 208 Neut % (Auto) 50 Lymph % (Auto) 29 [place] % (Auto) 7 Eos % (Auto) 13 H Baso % (Auto) 0 Neut # (Auto) 2.8 Lymph # (Auto) 1.6 [place] # (Auto) 0.4 Eos # (Auto) 0.8 H Baso # (Auto) 0.0 Immature Gran # (Auto) 0.01 H Absolute Nucleated RBC 0.00 Immature Gran % 0 Nucleated RBC % 0 Sodium 143 Potassium 3.6 Chloride 105 Carbon Dioxide 29.8 Anion Gap 8 BUN < 5 L Creatinine 0.8 Estim Creat Clear Calc 130.6 eGFR > 60 BUN/Creatinine Ratio 6 L Glucose 103 Calculated Osmolality 282 Calcium 8.5 Corrected Calcium 8.8 Phosphorus 3.7 Magnesium 1.9 Total Bilirubin 0.4 AST 13 ALT 39 Alkaline Phosphatase 82 C-Reactive Prot, Quant 3.6 H Total Protein 5.8 Albumin 3.6 Globulin 2.2 L Albumin/Globulin Ratio 1.6 Assessment & Plan A&P Narrative pancreatitis noted abd pain. may have passed a stone changed to po augmentin as taking po home at your discretio if still here Monday, will take a look briefly. hiv and hep panel neg with neg bc, ok to finish the 7d of rx and then stop rx at that point, even though stent remains in place Time Spent With Patient Time: Total time spent is greater than 50% in coordination of care (as documented) at patient's floor/unit and/or counseling patient:
--- NOTE | 2024-11-25 10:00 | PC.NURSE ---
Pt off unit for CT abd. no s/s of acute distress observed or reported.
--- NOTE | 2024-11-25 10:15 | ESPR_ITS ---
Documentation for date of: 11/25/24 Subjective Subjective Interval history: Overnight, no acute events reported. Patient still requires IV pain medications, and is alternating between IV morphine and Toradol. Patient however has been able to have food for the first time since admission. Patient states that he was also able to walk around the hospital with tolerable pain. Due to patient still requiring IV pain medications, will repeat CT abdomen pelvis with contrast to see if there are any acute changes. Last bowel movement was last Monday and will increase bowel regimen today. Exam Vital Signs Temp Pulse Resp BP Pulse Ox O2 Del Method 97.3 F 73 17 121/81 96 Room Air 11/25/24 08:00 11/25/24 08:00 11/25/24 08:00 11/25/24 08:00 11/25/24 08:00 11/25/24 08:00 Narrative Exam General: AOx3, significant distress due to stress, able to speak full sentences HEENT: NC/AT, mucous membranes moist, bilateral sclera anicteric Cardiovascular: regular rate and rhythm, S1/S2 present, no murmurs appreciated Pulmonary: clear to auscultation bilaterally, no rales/rhonchi/wheezes Abdominal: epigastric and RUQ tenderness, soft, non-distended, no rebound/guarding Musculoskeletal: normal ROM, no peripheral edema Skin: warm and dry, intact, no rashes Neuro: CN II-XII intact, no focal deficits Objective Labs 11/25/24 05:08 11/25/24 05:08 Labs: Laboratory Results - last 24 hr 11/25/24 05:08 WBC 5.6 RBC 4.25 L Hgb 13.1 L Hct 37.9 L MCV 89 MCH 30.8 MCHC 34.6 RDW Std Deviation 40.3 Plt Count 208 Neut % (Auto) 50 Lymph % (Auto) 29 [place] % (Auto) 7 Eos % (Auto) 13 H Baso % (Auto) 0 Neut # (Auto) 2.8 Lymph # (Auto) 1.6 [place] # (Auto) 0.4 Eos # (Auto) 0.8 H Baso # (Auto) 0.0 Immature Gran # (Auto) 0.01 H Absolute Nucleated RBC 0.00 Immature Gran % 0 Nucleated RBC % 0 Sodium 143 Potassium 3.6 Chloride 105 Carbon Dioxide 29.8 Anion Gap 8 BUN < 5 L Creatinine 0.8 Estim Creat Clear Calc 130.6 eGFR > 60 BUN/Creatinine Ratio 6 L Glucose 103 Calculated Osmolality 282 Calcium 8.5 Corrected Calcium 8.8 Phosphorus 3.7 Magnesium 1.9 Total Bilirubin 0.4 AST 13 ALT 39 Alkaline Phosphatase 82 C-Reactive Prot, Quant 3.6 H Total Protein 5.8 Albumin 3.6 Globulin 2.2 L Albumin/Globulin Ratio 1.6 Quality Measures Quality Measures none Assessment & Plan Assessment Current Active Medications: Generic Name Dose Route Start Last Admin Trade Name Freq PRN Reason Stop Dose Admin Hydrocodone Bitart/Acetaminophen 1 tab 11/24/24 17:16 11/24/24 20:07 Hydrocodone/Apap 10/325 Tab PO 11/29/24 11:16 1 tab Q6HR PRN Administration PAIN 4-6 Amoxicillin/Clavulanate Potassium 1 tab 11/25/24 21:00 Amoxicillin/Pot Clav 875 Tablet PO 12/02/24 20:59 BID CHARLES Diphenhydramine HCl 25 mg 11/16/24 12:42 Diphenhydramine Elix 25 Mg/10 Ml Udc PO 12/16/24 12:41 X1 PRN rash, itching Lactated Ringer's 1,000 mls @ 150 mls/hr 11/22/24 08:35 11/25/24 02:05 Lactated Ringers IV 12/22/24 08:34 150 mls/hr .Q6H40M CHARLES Administration Ketorolac Tromethamine 15 mg 11/24/24 08:59 11/25/24 07:55 Ketorolac Inj 30 Mg/Ml Vial IVP 11/29/24 08:58 15 mg Q6HR PRN Administration PAIN Protocol Morphine Sulfate 3 mg 11/24/24 11:17 11/25/24 09:15 Morphine Sulf Inj 10 Mg/Ml Vial IVP 11/29/24 11:16 3 mg Q2HR PRN Administration BREAKTHROUGH PAIN 7-10 Ondansetron HCl 4 mg 11/20/24 14:22 11/25/24 07:54 Ondansetron Inj 2 Mg/Ml Inj 2 Ml IV 12/20/24 14:21 4 mg Q6HR PRN Administration NAUSEA OR VOMITING Protocol Pantoprazole Sodium 40 mg 11/21/24 09:00 11/25/24 08:51 Pantoprazole 40 Mg Tablet PO 12/19/24 20:29 40 mg QDAY CHARLES Administration Sennosides 2 tab 11/23/24 21:10 11/24/24 22:11 Senna Tablet PO 12/23/24 21:09 2 tab QDAY PRN Administration CONSTIPATION Protocol Simethicone 80 mg 11/19/24 17:58 11/25/24 08:51 Simethicone 80 Mg Chew PO 12/19/24 17:57 80 mg QID PRN Administration GAS Plan Bridgett Viera is a 39-year-old male with no significant past medical history who presented to the ED on 11/16 for acute onset abdominal pain. He states that at around midnight he started to experience intense epigastric abdominal pain that radiated to his right upper quadrant and back with associated nausea and one episode of nonbloody emesis. Admitted for management of enlarged CBD as seen on MRCP and planned for ERCP. #Choledocolithiasis #Biliary stricture s/p stent placement 11/19/2024 #History of cholecystectomy 2006 #Pancreatitis s/p ERCP Acute onset epigastric abdominal pain that radiated to RUQ and back with associated nausea and one episode of nonbloody emesis. Cholecystectomy in 2006 in [facility] complicated by choledocholithiasis in the same month as cholecystectomy and had stents placed but have since been removed and no other complications since. Imaging showed CBD dilatation (1.1-1.3 cm) with abrupt termination. ERCP 11/19: single, moderate biliary stricture found in lower third of main bile duct, middle and upper thirds of main bile duct severely dilated secondary to stricture, sludge found in biliary tree, and one stent placed in CBD. CT A/P 11/19: acute pancreatitis without pseudocyst and biliary stent in satisfactory position and lipase elevated at 2400. Meropenem (11/20-11/22) CRP is downtrending Blood culture negative in the last 5 days ? GI consulted, appreciate recommendations ? Started on clear liquid, plan to advance as tolerated ? Pain management: Ketorolac, norco, morphine, simethicone ? Reglan and Zofran for nausea ? LR at 150 cc/hr ? Amox/clav 3 g IV q6h (11/22-) ? Trend CRP daily ? Ordered repeat CT abdomen pelvis with contrast Hospital management: Disposition: observation status-post ERCP, requiring IV pain medication Fluids: LR at 150 cc/hr Diet: clear liquid Lines: PIV DVT prophylaxis: SCDs GI prophylaxis: pantoprazole 40 mg daily CODE STATUS: full code Patient's plan and care discussed with my attending, Dr. Tiffanie Moser MD PGY-2 Attending Provider Attestation/Addendum I reviewed labs, imaging, EKG, home medications and prior available records. Face to face evaluation was performed by me. I have personally examined the patient and discussed assessment and plan with the IM team. I reviewed the resident note and agree with the plan with exceptions as below. Biliary stricture status post stenting Transaminitis Acute pancreatitis Status post ERCP. Status post stenting Remains in severe pain requiring significant IV opiate dose. Discussed with GI: May order repeat CT of the abdomen/pelvis. Continue pain management and wean off as tolerated Advance diet to full liquid diet Daily CRP: Downtrending. Discussed with GI: Decreased IV fluids Changed antibiotics to Unasyn per ID recommendations Trend LFTs: Downtrending
[2024-11-25] MEDS: METOCLOPRAMIDE INJ 5 MG/ML VIAL 2 ML 10 MG IVP (11:16)
[2024-11-25] MEDS: POLYETHYLENE GLYCOL 17 GM PACKET PO (11:16)
[2024-11-25 12:00] VITALS: BP 118/71; PULSE 80; RESP 16; TEMP 36.5; O2SAT 95
[2024-11-25] MEDS: HYDROcodone/APAP 10/325 TAB PO (12:05)
--- NOTE | 2024-11-25 12:12 | PC.NURSE ---
1013; Patient returned from CT. Patient had complaints of nausea. PRN Reglan administered. See SEP.
--- NOTE | 2024-11-25 15:41 | ESPR_ITS ---
Documentation for date of: 11/25/24 Subjective Subjective Interval history: Abdominal pain has improved. Exam Vital Signs Temp Pulse Resp BP Pulse Ox O2 Del Method 97.7 F 80 16 118/71 95 Room Air 11/25/24 12:00 11/25/24 12:00 11/25/24 12:00 11/25/24 12:00 11/25/24 12:00 11/25/24 12:00 Routine Abdominal Exam Comments: Mild tenderness and abdominal exam which is much better compared to last visit Objective Labs 11/25/24 05:08 11/25/24 05:08 Labs: Laboratory Results - last 24 hr 11/25/24 05:08 WBC 5.6 RBC 4.25 L Hgb 13.1 L Hct 37.9 L MCV 89 MCH 30.8 MCHC 34.6 RDW Std Deviation 40.3 Plt Count 208 Neut % (Auto) 50 Lymph % (Auto) 29 [place] % (Auto) 7 Eos % (Auto) 13 H Baso % (Auto) 0 Neut # (Auto) 2.8 Lymph # (Auto) 1.6 [place] # (Auto) 0.4 Eos # (Auto) 0.8 H Baso # (Auto) 0.0 Immature Gran # (Auto) 0.01 H Absolute Nucleated RBC 0.00 Immature Gran % 0 Nucleated RBC % 0 Sodium 143 Potassium 3.6 Chloride 105 Carbon Dioxide 29.8 Anion Gap 8 BUN < 5 L Creatinine 0.8 Estim Creat Clear Calc 130.6 eGFR > 60 BUN/Creatinine Ratio 6 L Glucose 103 Calculated Osmolality 282 Calcium 8.5 Corrected Calcium 8.8 Phosphorus 3.7 Magnesium 1.9 Total Bilirubin 0.4 AST 13 ALT 39 Alkaline Phosphatase 82 C-Reactive Prot, Quant 3.6 H Total Protein 5.8 Albumin 3.6 Globulin 2.2 L Albumin/Globulin Ratio 1.6 Assessment & Plan A&P Narrative Will check CRP tomorrow We can advance the diet as per toleration Expect discharge in 24 to 48 hours Continue IV fluids for now Patient needs outpatient ERCP with spyglass. Time Spent With Patient Time: Total time spent is greater than 50% in coordination of care (as documented) at patient's floor/unit and/or counseling patient:
--- NOTE | 2024-11-25 15:50 | PC.SS ---
SS follow up note; Repeat CT of ABD pending, weaning off IV pain medication. Patient will discharge back home when medically cleared.
[2024-11-25 16:00] VITALS: BP 109/70; PULSE 63; RESP 18; TEMP 36.4; O2SAT 94
[2024-11-25 20:00] VITALS: BP 113/74; PULSE 78; RESP 16; TEMP 36.6; O2SAT 94
[2024-11-25] MEDS: AMOXICILLIN/POT CLAV 875 TABLET 1 TAB PO (20:28)
[2024-11-25] MEDS: SENNA TABLET 2 TAB PO (20:36)
[2024-11-26] VITALS: BP 123/76; PULSE 71; RESP 16; TEMP 36.6; O2SAT 96
[2024-11-26] MEDS: ONDANSETRON INJ 2 MG/ML INJ 2 ML 4 MG IV (00:31)
[2024-11-26] MEDS: RINGERS LACTATED 1000 ML 1,000 ML 150 ML IV ×4 (00:35→19:20)
[2024-11-26] MEDS: HYDROcodone/APAP 10/325 TAB PO ×3 (02:21→23:34)
[2024-11-26 04:00] VITALS: BP 109/69; PULSE 67; RESP 16; TEMP 36.7; O2SAT 95
[2024-11-26] MEDS: MORPHINE SULF INJ 10 MG/ML VIAL 3 MG IVP ×2 (05:20→08:51)
[2024-11-26 05:45] LABS: Basophils % (Auto) 0 % (0-2.5); Eosinophils # (Auto) 0.5 Thou/mm3 (0.0-0.5); Eosinophils % (Auto) 9 % (0-10); Hematocrit 42.4 % (41.0-53.0); Hemoglobin 14.7 g/dL (13.5-16.0); Immature Granulocytes % (Auto) 0 % (0-0); Immature Granulocytes Auto 0.01 Thou/mm3 (0.00-0.00); Lymphocytes # (Auto) 1.4 Thou/mm3 (1.0-4.8); Lymphocytes % (Auto) 26 % (10-50); Mean Corpuscular HGB Conc 34.7 g/dl (31.0-37.0); Mean Corpuscular Hemoglobin 30.4 pg (25.0-35.0); Mean Corpuscular Volume 88 fL (80-100); Monocytes # (Auto) 0.4 Thou/mm3 (0.0-0.8); Monocytes % (Auto) 7 % (0-12); Neutrophils # (Auto) 3.1 Thou/mm3 (1.8-7.7); Neutrophils % (Auto) 57 % (37-80); Nucleated Red Blood Cell % 0 /100 WBC (0); Platelet Count 230 Thou/mm3 (140-440); RDW Standard Deviation 39.7 fL (35.1-43.9); Red Blood Count 4.84 Miln/mm3 (4.50-5.90); White Blood Count 5.4 Thou/mm3 (3.8-10.6)
[2024-11-26] MEDS: METOCLOPRAMIDE INJ 5 MG/ML VIAL 2 ML 10 MG IVP ×2 (06:26→13:13)
[2024-11-26 06:33] LABS: Alanine Aminotransferase 88 U/L (10-49); Albumin, Serum 4.1 gm/dL (3.5-5.0); Albumin/Globulin Ratio 1.6 (1.2-2.2); Alkaline Phosphatase 177 U/L (46-116); Anion Gap 8 (7-16); Aspartate Amino Transferase 73 U/L (0-34); BUN/Creatinine Ratio 6 Ratio (12-20); Bilirubin,Total 0.5 mg/dL (0.3-1.2); Blood Urea Nitrogen 5 mg/dL (9-23); C-Reactive Protein 2.5 mg/dL (0.0-0.9); Calcium 8.8 mg/dL (8.3-10.6); Calcium (Corrected) 8.8 mg/dL (8.5-10.1); Carbon Dioxide 28.9 mMol/L (20.0-31.0); Chloride 104 mMol/L (98-107); Creatinine (Component) 0.9 mg/dL (0.6-1.3); Estimated Creatinine Clearance 115.2 mL/min (>60); Globulin 2.5 gm/dL (2.3-3.5); Glucose 98 mg/dL (74-106); Osmolality,Calculated 278 (275-295); Phosphorous 3.3 mg/dL (2.4-5.1); Potassium 3.8 mMol/L (3.4-5.1); Sodium 141 mMol/L (136-145); Total Protein 6.6 gm/dL (5.7-8.2); eGFR > 60 See Note
[2024-11-26 08:00] VITALS: BP 112/84; PULSE 81; RESP 17; TEMP 36.6; O2SAT 93
[2024-11-26] MEDS: PANTOPRAZOLE 40 MG TABLET PO (08:50)
[2024-11-26] MEDS: AMOXICILLIN/POT CLAV 875 TABLET 1 TAB PO ×2 (08:50→21:08)
[2024-11-26] MEDS: POLYETHYLENE GLYCOL 17 GM PACKET PO (08:50)
--- NOTE | 2024-11-26 09:00 | ESPR_ITS ---
Documentation for date of: 11/26/24 Subjective Subjective Interval history: Overnight, no acute events reported. Patient has been using IV morphine and IV Toradol [id number] for his pain. Patient's pain is much better tolerated while eating and walking. Patient still has not had a bowel movement yet. Will try lactulose 3 times daily until patient has 2-3 bowel movements. Patient agreed with trying to wean down from his IV pain meds to oral pain medications with hydrocodone. Will still have IV morphine and IV Toradol as needed for pain for breakthrough. CT abdomen pelvis repeat from yesterday just showed mild pancreatitis with no acute changes. Patient most likely can be discharged within 24 hours. Exam Vital Signs Temp Pulse Resp BP Pulse Ox O2 Del Method 97.8 F 81 17 112/84 93 L Room Air 11/26/24 08:00 11/26/24 08:00 11/26/24 08:00 11/26/24 08:00 11/26/24 08:00 11/26/24 08:00 Narrative Exam General: AOx3, mild distress, able to speak full sentences HEENT: NC/AT, mucous membranes moist, bilateral sclera anicteric Cardiovascular: regular rate and rhythm, S1/S2 present, no murmurs appreciated Pulmonary: clear to auscultation bilaterally, no rales/rhonchi/wheezes Abdominal: epigastric and RUQ mild tenderness, soft, non-distended, no rebound/guarding Musculoskeletal: normal ROM, no peripheral edema Skin: warm and dry, intact, no rashes Neuro: CN II-XII intact, no focal deficits Objective Labs 11/26/24 05:20 11/26/24 05:20 Labs: Laboratory Results - last 24 hr 11/26/24 05:20 WBC 5.4 RBC 4.84 Hgb 14.7 Hct 42.4 MCV 88 MCH 30.4 MCHC 34.7 RDW Std Deviation 39.7 Plt Count 230 Neut % (Auto) 57 Lymph % (Auto) 26 [place] % (Auto) 7 Eos % (Auto) 9 Baso % (Auto) 0 Neut # (Auto) 3.1 Lymph # (Auto) 1.4 [place] # (Auto) 0.4 Eos # (Auto) 0.5 Baso # (Auto) 0.0 Immature Gran # (Auto) 0.01 H Absolute Nucleated RBC 0.00 Immature Gran % 0 Nucleated RBC % 0 Sodium 141 Potassium 3.8 Chloride 104 Carbon Dioxide 28.9 Anion Gap 8 BUN 5 L Creatinine 0.9 Estim Creat Clear Calc 115.2 eGFR > 60 BUN/Creatinine Ratio 6 L Glucose 98 Calculated Osmolality 278 Calcium 8.8 Corrected Calcium 8.8 Phosphorus 3.3 Magnesium 2.0 Total Bilirubin 0.5 AST 73 H ALT 88 H Alkaline Phosphatase 177 H D C-Reactive Prot, Quant 2.5 H Total Protein 6.6 Albumin 4.1 D Globulin 2.5 Albumin/Globulin Ratio 1.6 Quality Measures Quality Measures none Assessment & Plan Assessment Current Active Medications: Generic Name Dose Route Start Last Admin Trade Name Freq PRN Reason Stop Dose Admin Hydrocodone Bitart/Acetaminophen 1 tab 11/24/24 17:16 11/26/24 02:21 Hydrocodone/Apap 10/325 Tab PO 11/29/24 11:16 1 tab Q6HR PRN Administration PAIN 4-6 Amoxicillin/Clavulanate Potassium 1 tab 11/25/24 21:00 11/26/24 08:50 Amoxicillin/Pot Clav 875 Tablet PO 12/02/24 20:59 1 tab BID CHARLES Administration Diphenhydramine HCl 25 mg 11/16/24 12:42 Diphenhydramine Elix 25 Mg/10 Ml Udc PO 12/16/24 12:41 X1 PRN rash, itching Lactated Ringer's 1,000 mls @ 150 mls/hr 11/22/24 08:35 11/26/24 06:22 Lactated Ringers IV 12/22/24 08:34 150 mls/hr .Q6H40M CHARLES Administration Ketorolac Tromethamine 15 mg 11/24/24 08:59 11/25/24 07:55 Ketorolac Inj 30 Mg/Ml Vial IVP 11/29/24 08:58 15 mg Q6HR PRN Administration PAIN Protocol Metoclopramide HCl 10 mg 11/25/24 10:18 11/26/24 06:26 Metoclopramide Inj 5 Mg/Ml Vial 2 Ml IVP 12/25/24 10:17 10 mg Q6HR PRN Administration Vomiting Protocol Morphine Sulfate 3 mg 11/24/24 11:17 11/26/24 08:51 Morphine Sulf Inj 10 Mg/Ml Vial IVP 11/29/24 11:16 3 mg Q2HR PRN Administration BREAKTHROUGH PAIN 7-10 Ondansetron HCl 4 mg 11/20/24 14:22 11/26/24 00:31 Ondansetron Inj 2 Mg/Ml Inj 2 Ml IV 12/20/24 14:21 4 mg Q6HR PRN Administration NAUSEA OR VOMITING Protocol Pantoprazole Sodium 40 mg 11/21/24 09:00 11/26/24 08:50 Pantoprazole 40 Mg Tablet PO 12/19/24 20:29 40 mg QDAY CHARLES Administration Polyethylene Glycol 17 gm 11/25/24 10:45 11/26/24 08:50 Polyethylene Glycol 17 Gm Packet PO 12/25/24 10:44 17 gm QDAY CHARLES Administration Sennosides 2 tab 11/23/24 21:10 11/25/24 20:36 Senna Tablet PO 12/23/24 21:09 2 tab QDAY PRN Administration CONSTIPATION Protocol Simethicone 80 mg 11/19/24 17:58 11/25/24 20:36 Simethicone 80 Mg Chew PO 12/19/24 17:57 80 mg QID PRN Administration GAS Plan Bridgett Viera is a 39-year-old male with no significant past medical history who presented to the ED on 11/16 for acute onset abdominal pain. He states that at around midnight he started to experience intense epigastric abdominal pain that radiated to his right upper quadrant and back with associated nausea and one episode of nonbloody emesis. Admitted for management of enlarged CBD as seen on MRCP and planned for ERCP. #Choledocolithiasis #Biliary stricture s/p stent placement 11/19/2024 #History of cholecystectomy 2006 #Pancreatitis s/p ERCP #Constipation Acute onset epigastric abdominal pain that radiated to RUQ and back with associated nausea and one episode of nonbloody emesis. Cholecystectomy in 2006 in [facility] complicated by choledocholithiasis in the same month as cholecystectomy and had stents placed but have since been removed and no other complications since. Imaging showed CBD dilatation (1.1-1.3 cm) with abrupt termination. ERCP 11/19: single, moderate biliary stricture found in lower third of main bile duct, middle and upper thirds of main bile duct severely dilated secondary to stricture, sludge found in biliary tree, and one stent placed in CBD. CT A/P 11/19: acute pancreatitis without pseudocyst and biliary stent in satisfactory position and lipase elevated at 2400. Meropenem (11/20-11/22) CRP is downtrending, last one was 2.5 Blood culture negative in the last [address] abdomen pelvis with contrast showed mild pancreatitis with no other acute changes ? GI consulted, appreciate recommendations ? Advanced diet as tolerated ? Pain management: Ketorolac, norco, morphine, simethicone ? Reglan and Zofran for nausea ? Amox/clav 3 g IV q6h (11/22-) --> transitioned to oral Augmentin and will require 7 more days to complete course, to finish on 12/02/24 - Will continue IV Fluids for now, and discontinue after patient continues to advance his diet - Lactulose added to bowel regimen for bowel movement Hospital management: Disposition: anticipate discharge within 24 hours Diet: clear liquid Lines: PIV DVT prophylaxis: SCDs GI prophylaxis: pantoprazole 40 mg daily CODE STATUS: full code Patient's plan and care discussed with my attending, Dr. Karyn Moser MD PGY-2 Attending Provider Attestation/Addendum I attest that I was physically present for the evaluation, physical examination, lab and imaging review of the patient with the residents. I discussed the case with the residents and agree with the findings and plans of care as documented above. At bedside today, patient is states she is feeling better compared to yesterday. Has been tolerating diet and able to ambulate. Has not had any bowel movement yet and continues to have abdominal pain. Patient has been using IV morphine [id number], discussed with the patient regarding decreasing his pain regimen and switching to oral regimen. Patient agrees with the plan. CT abdomen/pelvis was done yesterday which showed mild pancreatitis with no acute changes. We will plan for discharge in next 24 hours if patient is able to tolerate diet and has his pain controlled with oral regimen. Kali Boss MD
[2024-11-26 12:00] VITALS: BP 113/79; PULSE 74; RESP 17; TEMP 36.3; O2SAT 95
[2024-11-26] MEDS: LACTULOSE SYRUP 20 GM/30 ML UDC PO (13:13)
[2024-11-26] MEDS: MORPHINE SULF INJ 10 MG/ML VIAL IVP (14:10)
[2024-11-26 16:00] VITALS: BP 110/75; PULSE 73; RESP 17; TEMP 36.1; O2SAT 95
[2024-11-26] MEDS: HYDROcodone/APAP 5/325 TABLET 1 TAB PO (16:50)
[2024-11-26] MEDS: KETOROLAC INJ 30 MG/ML VIAL 15 MG IVP (19:16)
[2024-11-26 20:00] VITALS: BP 104/71; PULSE 72; RESP 17; TEMP 36.3; O2SAT 94
[2024-11-27] VITALS: BP 123/93; PULSE 89; RESP 17; TEMP 36.6; O2SAT 94
[2024-11-27] MEDS: ONDANSETRON INJ 2 MG/ML INJ 2 ML 4 MG IV (01:35)
[2024-11-27] MEDS: RINGERS LACTATED 1000 ML 1,000 ML 150 ML IV (01:40)
[2024-11-27 03:57] VITALS: BP 109/77; PULSE 72; RESP 18; TEMP 36.6; O2SAT 94
[2024-11-27 05:22] LABS: Basophils % (Auto) 0 % (0-2.5); Eosinophils # (Auto) 0.6 Thou/mm3 (0.0-0.5); Eosinophils % (Auto) 9 % (0-10); Hemoglobin 13.9 g/dL (13.5-16.0); Immature Granulocytes % (Auto) 0 % (0-0); Immature Granulocytes Auto 0.01 Thou/mm3 (0.00-0.00); Lymphocytes # (Auto) 1.5 Thou/mm3 (1.0-4.8); Lymphocytes % (Auto) 23 % (10-50); Mean Corpuscular HGB Conc 33.9 g/dl (31.0-37.0); Mean Corpuscular Hemoglobin 30.2 pg (25.0-35.0); Mean Corpuscular Volume 89 fL (80-100); Monocytes # (Auto) 0.5 Thou/mm3 (0.0-0.8); Monocytes % (Auto) 8 % (0-12); Neutrophils # (Auto) 3.9 Thou/mm3 (1.8-7.7); Neutrophils % (Auto) 60 % (37-80); Nucleated Red Blood Cell % 0 /100 WBC (0); Platelet Count 244 Thou/mm3 (140-440); RDW Standard Deviation 39.9 fL (35.1-43.9); White Blood Count 6.5 Thou/mm3 (3.8-10.6)
[2024-11-27] MEDS: HYDROcodone/APAP 10/325 TAB PO ×2 (05:38→12:24)
[2024-11-27 06:00] VITALS: BMI 26.6
[2024-11-27 06:16] LABS: Alanine Aminotransferase 58 U/L (10-49); Albumin, Serum 3.8 gm/dL (3.5-5.0); Albumin/Globulin Ratio 1.7 (1.2-2.2); Alkaline Phosphatase 133 U/L (46-116); Anion Gap 10 (7-16); Aspartate Amino Transferase 32 U/L (0-34); BUN/Creatinine Ratio 11 Ratio (12-20); Bilirubin,Total 0.4 mg/dL (0.3-1.2); Blood Urea Nitrogen 9 mg/dL (9-23); C-Reactive Protein 1.5 mg/dL (0.0-0.9); Calcium 8.4 mg/dL (8.3-10.6); Calcium (Corrected) 8.6 mg/dL (8.5-10.1); Carbon Dioxide 27.3 mMol/L (20.0-31.0); Chloride 105 mMol/L (98-107); Creatinine (Component) 0.8 mg/dL (0.6-1.3); Estimated Creatinine Clearance 119.9 mL/min (>60); Globulin 2.3 gm/dL (2.3-3.5); Glucose 104 mg/dL (74-106); Osmolality,Calculated 281 (275-295); Potassium 3.9 mMol/L (3.4-5.1); Sodium 142 mMol/L (136-145); Total Protein 6.1 gm/dL (5.7-8.2); eGFR > 60 See Note
[2024-11-27 08:00] VITALS: BP 112/76; PULSE 83; RESP 18; TEMP 36.3; O2SAT 95
[2024-11-27] MEDS: PANTOPRAZOLE 40 MG TABLET PO (08:33)
[2024-11-27] MEDS: MORPHINE SULF INJ 10 MG/ML VIAL IVP (08:33)
[2024-11-27] MEDS: POLYETHYLENE GLYCOL 17 GM PACKET PO (08:33)
[2024-11-27] MEDS: AMOXICILLIN/POT CLAV 875 TABLET 1 TAB PO (08:33)
--- NOTE | 2024-11-27 09:13 | PC.SS ---
SS follow up note; Possible discharge home today if pain is controlled.
--- NOTE | 2024-11-27 11:44 | ESPR_ITS ---
Documentation for date of: 11/27/24 Subjective Subjective Interval history: Patient was seen and examined today abdominal pain has improved dramatically. Exam Vital Signs Temp Pulse Resp BP Pulse Ox O2 Del Method 97.3 F 83 18 112/76 95 Room Air 11/27/24 08:00 11/27/24 08:00 11/27/24 08:00 11/27/24 08:00 11/27/24 08:00 11/27/24 08:00 Routine Abdominal Exam Comments: Tenderness is almost gone. Abdominal exam benign. Objective Labs 11/27/24 04:14 11/27/24 04:14 Labs: Laboratory Results - last 24 hr 11/27/24 04:14 WBC 6.5 RBC 4.60 Hgb 13.9 Hct 41.0 MCV 89 MCH 30.2 MCHC 33.9 RDW Std Deviation 39.9 Plt Count 244 Neut % (Auto) 60 Lymph % (Auto) 23 [place] % (Auto) 8 Eos % (Auto) 9 Baso % (Auto) 0 Neut # (Auto) 3.9 Lymph # (Auto) 1.5 [place] # (Auto) 0.5 Eos # (Auto) 0.6 H Baso # (Auto) 0.0 Immature Gran # (Auto) 0.01 H Absolute Nucleated RBC 0.00 Immature Gran % 0 Nucleated RBC % 0 Sodium 142 Potassium 3.9 Chloride 105 Carbon Dioxide 27.3 Anion Gap 10 BUN 9 Creatinine 0.8 Estim Creat Clear Calc 119.9 eGFR > 60 BUN/Creatinine Ratio 11 L Glucose 104 Calculated Osmolality 281 Calcium 8.4 Corrected Calcium 8.6 Phosphorus 3.0 Magnesium 2.0 Total Bilirubin 0.4 AST 32 ALT 58 H Alkaline Phosphatase 133 H D C-Reactive Prot, Quant 1.5 H Total Protein 6.1 Albumin 3.8 Globulin 2.3 Albumin/Globulin Ratio 1.7 Assessment & Plan A&P Narrative CRP trending down. We can advance the diet as per toleration Continue IV fluids for now Patient needs outpatient ERCP with spyglass. We can discharge the patient as patient tolerates regular diet in the next 24 hours. Follow-up with Dr. Bedolla in 2 to 4 weeks Time Spent With Patient Time: Total time spent is greater than 50% in coordination of care (as documented) at patient's floor/unit and/or counseling patient:
[2024-11-27 12:00] VITALS: BP 116/81; PULSE 80; RESP 17; TEMP 36.2; O2SAT 96
--- NOTE | 2024-11-27 13:11 | PD.RESDS ---
Planned Discharge Date 11/27/24 DS: Providers Provider Date of admission: 11/16/24 12:20 Primary care physician: Physician No Primary/Family Admitting Provider: Frantz Shields DO Attending Provider on Admission: Kali Boss MD Consults: 11/16/24 11:54 Consult to Gastroenterology Stat Comment: Consulting Provider: Buster Farris 11/20/24 15:02 Consult to Infectious Diseases Routine Comment: Consulting Provider: Klaus Hale Attending Provider on DC: Edu Leary MD Discharging Provider: Edu Leary MD DS: Diagnosis Problem List Completed Was Problem List Reviewed/Reconciled?: Yes Hospital Course Hospital Course Hospital course: Bridgett Viera is a 39-year-old male with no significant past medical history who presented to the ED on 11/16 for acute onset abdominal pain. He states that at around midnight he started to experience intense epigastric abdominal pain that radiated to his right upper quadrant and back with associated nausea and one episode of nonbloody emesis. Otherwise, he denies fever, chills, diarrhea, constipation, hematuria, or dysuria. Has a history of cholecystectomy in 2006 in [facility] complicated by choledocholithiasis in the same month as his cholecystectomy and had stents placed but have since been removed and no other complications since. In the ED, vital signs stable - no fever, blood pressure and heart rate within normal limits, and patient is on room air. No leukocytosis, total bilirubin withi normal limits, ALP within normal limits, and LFTs within normal limits. UA negative for signs of UTI. CT A/P showed absent gallbladder, CBD enlarged at 13 mm but with abrupt termination in distal CBD, splenomegaly, perinephric stranding. Gallbladder ultrasound showed absent gallbladder, CBD 1.1 cm without stones. MRCP showed enlarged CBD at 12 mm with abrupt termination, no definite stone seen. GI, Dr. Bedolla, consulted in ED for ERCP. Patient eventually underwent ERCP on 11/19 that showed severe dilatation of middle and upper third of the main bile duct secondary to stricture and a stent with 2 internal flap was placed into the common bile duct. Procedure occurred without complications, however patient continued to endorse severe abdominal pain afterwards that persisted. Overnight, Dr. Bedolla was notified and recommended CT A/P abdomen lipase, both of which were positive for pancreatitis. Aggressive IV fluids were started, blood cultures were taken, patient was started on meropenem. Infectious disease was also consulted overnight and antibiotic was changed to p.o. Augmentin. Throughout rest of hospital course, patient continued to experience significant abdominal pain that was more responsive to morphine and then Dilaudid but labs including T. bili, ALP, and LFTs continue to downtrend. CRP was also trended and down trended. Over last few days, patient was weaned off of morphine he was agreeable to be discharged with [place] with close follow-up with PCP. Per GI recommendations, encouraged patient to obtain referral to GI specialist with ERCP with spyglass and also discharged with 5 days of Augmentin to finish antibiotic course. 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 Take amoxicillin-clavulanate twice per day for 5 more days ? Continue taking all other home medications as prescribed ? Follow-up with PCP within 1-2 weeks of discharge and obtain referral to GI specialist for ERCP with [facility] ? If you do not have a PCP, you can follow-up at the [facility] (you can call [phone] to make an appointment) ? If you wish to follow-up with Dr. Leary, schedule appointment on Monday afternoons ? Return to ED if symptoms worsen or recur ----- Plan discussed with attending physician Dr. Karyn Leary MD PGY-1 Internal Medicine Time Spent with Patient Time attestation: Total time spent providing and/or coordinating discharge services: Time spent: Less than 30 minutes Exam Vital Signs Temp Pulse Resp BP Pulse Ox O2 Del Method 97.2 F 80 17 116/81 96 Room Air 11/27/24 12:00 11/27/24 12:11/27/24 12:00 11/27/24 12:11/27/24 12:11/27/24 12:00 Narrative Exam General: AOx3, mild distress, able to speak full sentences HEENT: NC/AT, mucous membranes moist, bilateral sclera anicteric Cardiovascular: regular rate and rhythm, S1/S2 present, no murmurs appreciated Pulmonary: clear to auscultation bilaterally, no rales/rhonchi/wheezes Abdominal: epigastric and RUQ mild tenderness improved compared to prior, soft, non-distended, no rebound/guarding Musculoskeletal: normal ROM, no peripheral edema Skin: warm and dry, intact, no rashes Neuro: CN II-XII intact, no focal deficits Discharge Plan Plan Patient Disposition: HOME (Self Care) Patient condition on transfer: Stable and Benefits outweigh risks Care Plan Goals: ? Take amoxicillin-clavulanate twice per day for 5 more days ? Continue taking all other home medications as prescribed ? Follow-up with PCP within 1-2 weeks of discharge and obtain referral to GI specialist for ERCP with [facility] ? If you do not have a PCP, you can follow-up at the [facility] (you can call [phone] to make an appointment) ? If you wish to follow-up with Dr. Leary, schedule appointment on Monday afternoons ? Return to ED if symptoms worsen or recur Prescriptions/Referrals Prescriptions/Med Rec: New amoxicillin-pot clavulanate 875-125 mg tablet 1 tab PO BID 5 Days Qty: 10 0RF hydrocodone-acetaminophen 10-325 mg tablet 1 tab PO Q6H MDD 40 mg PRN (Reason: pain) 3 Days Qty: 12 0RF Referrals: No Primary/Family,Physician [Primary Care Provider] - Patient/Caregiver Discharge Instructions Discharge Activity: activity as tolerated Education Materials: Understanding Pancreatitis, Pancreatitis Acute Dc, ERCP Dc Print Language: Libyan Stand Alone Forms: Barbie Award Info., Patient Portal Info Letter, Work/Release Restrictions Discharge Order Discharge Orders: Discharge (Routine); Ordered 11/27/24 Ordered By: Edu Leary Quality Discharge Quality Measures VTE prophylaxis Attestestation Attestation I attest that I was physically present for the evaluation, physical examination, lab and imaging review of the patient with the residents. I discussed the case with the residents and agree with the findings and plans of care as documented above. Kali Boss MD
== END 2024-11-27 14:00 | disposition home or self-care (01) | DRG 446 ==
LOC: SERX 11:55 → SERHOLD 12:56 → S3SX 17:17
PROVIDERS: Internal Medicine Gastroenterology; Internal Medicine Infectious Disease; Nurse Practitioner Family; Student in an Organized Health Care Education/Training Program; Admitting Provider Student in an Organized Health Care Education/Training Program; Emergency Provider Emergency Medicine; Visit Provider Student in an Organized Health Care Education/Training Program
PROC: 0FC98ZZ Extirpation of Matter from Common Bile Duct, Via Natural or Artificial Opening Endoscopic (ICD-10-PCS; CPT 43260; principal; 2024-11-19 11:30)
DX: K83.1 Obstruction of bile duct (principal); K83.8 Other specified diseases of biliary tract; R16.1 Splenomegaly, not elsewhere classified; K59.00 Constipation, unspecified; R74.01 Elevation of levels of liver transaminase levels; Z90.49 Acquired absence of other specified parts of digestive tract; Z88.5 Allergy status to narcotic agent
CPT/HCPCS: 36415; 74018; 74176; 74177; 74330; 76705; 80048; 80053; 80061; 80074; 80076; 81001; 83605; 83690; 83735; 84100; 84478; 85025; 85610; 85730; 86140; 86703; 87040; 93005; 96372; 96374; 99285; A4217; A4649; C1889; C2617; C2625; J0131; J0295; J1100; J1171; J1885; J2185; J2250; J2270; J2405; J2470; J2543; J2704; J2765; J3010; J3490; J7050; J7120; Q9967; S8037; 74181; A9270; J1805

== ENCOUNTER → 2025-04-04 | Outpatient (CLI) | payer OTHER, SELFPAY ==
--- NOTE | 2025-04-04 07:00 | XR_ITS ---
MRI abdomen, without contrast. MRCP Date and time of exam: April 04, T2 thousand 25, 0723 hrs., Comparison November 16, 2024 Indications: History enlarged common bile duct 12 mm with abrupt termination MRCP November 16, 2024, post biliary stent placement/replacement one week ago Technique: Multiple axial and coronal images of the abdomen have been obtained with the Siemens 1.5T MRI scanner. Images obtained included T1 weighted transverse images, T2-weighted transverse images, T2-weighted transverse images fat-suppressed, T2 weighted haste fat suppressed transverse images, T1 weighted images, in and out of phase images, T2-weighted coronal images, breath hold, T2 weighted haze coronal images as well as T2 weighted coronal thick slab images, MRCP. Findings: Intrahepatic biliary tract dilatation, no focal liver lesions Abnormal enlargement common hepatic common bile duct at least 17 mm Small areas of sludge versus tiny stones, coronal image 14, in the common bile duct Abrupt termination of the common bile duct Pancreatic duct is not dilated No pancreatic mass or edema Spleen is not enlarged No hydronephrosis No ascites Aorta normal size Impression: There remains significant enlargement of the common hepatic common bile duct at least 17 mm, small areas of sludge versus tiny stones in the common bile duct Consider CT scan abdomen follow-up to best assess position of the biliary stent
== END | disposition home or self-care (01) ==
PROVIDERS: PCP Nurse Practitioner Primary Care
DX: K86.2 Cyst of pancreas (principal)
CPT/HCPCS: 74181

== ENCOUNTER 2025-07-07 09:56 | Emergency (ER) | payer OTHER, SELFPAY ==
[2025-07-07 09:57] VITALS: BMI 27.3
[2025-07-07 10:26] VITALS: BP 127/84; PULSE 103; RESP 18; TEMP 36.9; O2SAT 98; BMI 27.3
--- NOTE | 2025-07-07 10:31 | EDNOTE_ITS ---
Upper Respiratory Inf. RME/HPI General Chief Complaint: Flu Like Symptoms Stated Complaint: FLU SYMPTOMS Time Seen by Provider: 07/07/25 10:22 Source: patient Arrival date/time: 07/07/25 09:56 40-year-old male with no known medical history presents to the emergency room with a chief complaint of cough, shortness of breath, fevers x 2 days Mode of arrival: ambulatory Limitations: no limitations Related Data Previous Rx's ?Medication ?Instructions ?Recorded albuterol sulfate 90 mcg/actuation 2 puff inhalation Q 6H PRN 07/07/25 aerosol inhaler (Ventolin HFA) shortness of breath or wheezing #6.7 grams amoxicillin 875 mg-potassium 1 tab PO BID 7 days #14 t abs 07/07/25 clavulanate 125 mg tablet Review of Systems Review of Systems Systems Reviewed: All systems reviewed, normal except as documented Constitutional Constitutional: Reports system reviewed and no additional complaints, except as documented, Denies fatigue, Denies fever(s), Denies headache(s) and Denies weakness Eyes Eyes: Reports system reviewed and no additional complaints, except as documented, Denies blurry vision and Denies change in vision ENT Ears, Nose, Mouth, and Throat: Reports system reviewed and no additional complaints, except as documented, Denies otalgia, Denies headache(s), Denies nasal congestion, Denies throat swelling and Denies vertigo Cardiovascular Cardiovascular: Reports system reviewed and no additional complaints, except as documented, Denies chest pain, Reports dyspnea and Reports dyspnea on exertion Respiratory Respiratory: Reports system reviewed and no additional complaints, except as documented, Denies chest congestion, Reports cough, Reports dyspnea, Reports dyspnea on exertion, Reports excessive phlegm production and Denies wheezing Gastrointestinal Gastrointestinal: Reports system reviewed and no additional complaints, except as documented, Denies abdominal pain, Denies cramping, Denies nausea and Denies vomiting Genitourinary Genitourinary: Reports system reviewed and no additional complaints, except as documented, Denies dysuria and Denies hematuria Musculoskeletal Musculoskeletal: Reports system reviewed and no additional complaints, except as documented and Denies back pain Integumentary/Breasts Skin/Breast: Reports system reviewed and no additional complaints, except as documented and Denies wounds Neurologic Neurologic: Reports system reviewed and no additional complaints, except as documented, Denies confusion, Denies headache(s), Denies lack of coordination, Denies vertigo and Denies weakness Psychiatric Psychiatric: Reports system reviewed and no additional complaints, except as documented, Denies anxiety, Denies confusion, Denies depression, Denies paranoia, Denies suicidal ideation and Denies tactile hallucinations Endocrine Endocrine: Reports system reviewed and no additional complaints, except as documented and Denies fatigue Hematologic/Lymphatic Hematologic/Lymphatic: Reports system reviewed and no additional complaints, except as documented and Denies lymphadenopathy Allergic/Immunologic Allergic/Immunologic: Reports system reviewed and no additional complaints, except as documented, Denies throat swelling, Denies urticaria and Denies wheezing ED Exam General Limitations: Present no limitations General appearance: Present alert and in no apparent distress Head Head exam: Present atraumatic Eye Eye exam: Present normal appearance, PERRL and EOMI ENT ENT exam: Present normal exam, normal oropharynx and mucous membranes moist Neck Neck exam: Present normal inspection, full ROM and trachea midline Chest Chest inspection: Present normal inspection and symmetric chest wall rise Respiratory Respiratory exam: Present normal lung sounds bilaterally; Absent respiratory distress, wheezes, stridor, accessory muscle use or prolonged expiratory phase Cardiovascular Cardiovascular exam: Present regular rate, normal rhythm and normal heart sounds Abdominal Exam Abdominal exam: Present soft and normal bowel sounds Extremities Exam Extremities exam: Present normal inspection and full ROM Back Exam Back exam: Present normal inspection and full ROM Neurological Exam Neurological exam: Present alert, oriented X3 and CN II-XII intact Psychiatric Psychiatric exam: Present normal affect and normal mood Skin Skin exam: Present warm, dry, intact and normal color Course Quality Measures none Orders Category Date Time Status Bedside COVID-19 Antigen Test NOW Care 07/07/25 10:31 Completed Bedside Influenza A&B Antigen Test NOW Care 07/07/25 10:31 Completed XR chest 1V portable Stat Exams 07/07/25 10:31 Completed Vital Signs Vital signs: Vital Signs Temperature 98.4 F 07/07/25 10:26 Pulse Rate 103 H 07/07/25 10:26 Respiratory Rate 18 07/07/25 10:26 Blood Pressure 127/84 07/07/25 10:26 Pulse Oximetry (%) 98 07/07/25 10:26 Oxygen Delivery Method Room Air 07/07/25 10:26 Upper Respiratory Infection MDM Narrative MDM Narrative:: 40-year-old male with no known medical history presents to the emergency room with a chief complaint of cough, shortness of breath, fevers x 2 days Patient is hemodynamically stable and in no apparent distress. Patient is afebrile not tachycardic not tachypneic Physical examination shows clear bilateral lung sounds there is no wheezing or any abnormal breath sounds Chest x-ray was completed and shows community-acquired pneumonia. Antibiotics are sent to the patient's pharmacy COVID-19 and influenza test were both negative Patient was discharged and educated to follow-up with primary care provider in the next 24 to 48 hours and return to the emergency room for any evidence of worsening signs or symptoms Patient data External records reviewed:: [facility] previous records Clinical information provided by:: patient Social determinants that could affect healthcare access:: none Patient has the following chronic illnesses:: No chronic illness How is presenting disease/condition affected by chronic disease/condition?: no chronic disease Evaluation data The following diagnostics were reviewed and interpreted by me:: lab results and radiology exam(s) Lab and/or radiology exams considered but not ordered:: Labs and radiology exams considered and ordered Interpretation Summary: Chest [id number]: Early right lower lobe pneumonia. Normal heart size Left lung clear. Intact osseous structures IMPRESSION: Early right lower lobe pneumonia Medications / Prescriptions Medications or Prescriptions considered but not ordered:: No medication given Medication administrations:: No medication given Consultations Consultation(s) initiated? (list below): No Diagnosis Upper Respiratory Differential Diagnosis: upper respiratory infection, viral infection, bronchitis, influenza and other (Community-acquired pneumonia) Most likely diagnosis given after review of the tests above:: Community-acquired pneumonia Admission Indicated Admission indicated?: not indicated Admission Request Was there a request for admission?: No Disposition Plan Disposition Plan: Discharge Discharge Attestation Discharge Attestation: The patient and all family members were given an opportunity to ask questions and understood the discharge instructions. Discharge instructions specifically effects, indications for sooner follow up or return to the emergency department, and the expected course of current diagnosis. Patient condition: Stable Discharge Plan Plan Patient Disposition: HOME (Self Care) Discharge Disposition comment: Stable Prescriptions/Referrals Prescriptions/Med Rec: New amoxicillin-pot clavulanate 875-125 mg tablet 1 tab PO BID 7 Days Qty: 14 0RF albuterol sulfate [Ventolin HFA] 90 mcg/actuation HFA aerosol inhaler 2 puff inhalation Q6H PRN (Reason: shortness of breath or wheezing) Qty: 6.7 0RF Referrals: Nallely Reynolds, [employer] [Primary Care Provider] - In 1 week Problem List Clinical Impression: Community acquired pneumonia Patient/Caregiver Discharge Instructions Education Materials: ED Pneumonia (Adult) Additional Instructions: Please follow-up with your primary care provider in the next 24 to 48 hours Your chest x-ray shows community-acquired pneumonia Antibiotics are sent to your pharmacy please pick them up and take them as indicated For any evidence of worsening signs or symptoms return to emergency room immediately Print Language: Uruguayan Stand Alone Forms: Barbie Award Info., Work/School Release, Patient Portal Info Letter PA/INDUSTRIAL TECHNICIAN Supervising Physician PA/INDUSTRIAL TECHNICIAN Supervising Physician: Dr. Acosta
--- NOTE | 2025-07-07 10:31 | XR_ITS ---
EXAMINATION: PA chest single view TECHNIQUE: Upright PA chest single view Date and time: July 07, 2025, 1032 hours, comparison 03/16/2014 INDICATIONS: Coughing fever beginning 3 days ago. FINDINGS: Early right lower lobe pneumonia. Normal heart size Left lung clear. Intact osseous structures IMPRESSION: Early right lower lobe pneumonia
== END 2025-07-07 12:35 | disposition home or self-care (01) ==
PROVIDERS: Emergency Provider Nurse Practitioner Family; PCP Nurse Practitioner Primary Care
DX: J18.9 Pneumonia, unspecified organism (principal)
CPT/HCPCS: 71045; 87502; 87635; 99282; 99283